=== PATIENT | female | born 1995 | race Caucasian/White ===

== ENCOUNTER → 2017-06-24 | Day surgery (SDC) | payer OTHER ==
[2017-06-10 12:07] VITALS: Ht 172.7 cm; Wt 122.7 kg
[~2017-06-24] VITALS: Ht 172.7 cm; Wt 122.7 kg
[~2017-06-24] MED LIST: ALBU18002 INH; ASPI-390 PO; BUSP15TA70 PO; FLUT0.15; LIDOCAINE HCL 2% 2 ML VIAL (20MG/ML) ONE; MIDAZOLAM HCL 1 MG/ML 2ML VIAL ONE; ONDANSETRON INJ 2 MG/ML 2 ML VIAL ONE; PANT40TA PO; PROPOFOL IV EMULSION 10 MG/ML 20 ML VIAL IV ONE; SERT100T PO; SUCCINYLCHOLINE 100MG/5ML SYR IV ONE
[2017-06-24 12:51] VITALS: TEMP 37.3
--- NOTE | 2017-06-24 12:53 | Endo History and Physical ---
History & Physical Date of Service: Jun 24, 2017. Chief Complaint: Dysphagia, EOE Referring Physician: Roxie Edouard History of Present Illness 22 yo CF who presents for EGD secondary to dysphagia and Eosinophilic esophagitis. Past Surgical History Hx Cardiac Surgery: No Hx Internal Defibrillator: No Hx Pacemaker: No Hx Abdominal Surgery: No Hx of Implantable Prosthesis: No Hx Post-Op Nausea and Vomiting: No Hx Cancer Surgery: No Hx Thoracic Surgery: No Hx Orthopedic: Yes (RT KNEE SURGERY, LT WRIST TENDON REPAIR) Hx Urinary Tract Surgery: No Family History IBD Social History Smoking Status: Never Smoker Hx Substance Use: No Hx Alcohol Use: No Allergies Coded Allergies: BEE STING (Verified Allergy, Unknown, LOCAL SWELLING AT INJECTION SITE, ) Honey (Verified Allergy, Unknown, FACIAL SWELLING, 06/24/17) Penicillins (Verified Allergy, Unknown, RASH, 06/24/17) Current Medications Reported Home Medications Medications Dose Route/Sig Max Daily Dose Days Date Category Flonase Allergy Relief (Fluticasone Propionate (Nasal)) 50 Mcg/Act Spr 06/24/17 Reported Excedrin Migraine (Mfpxczm-Ynequwfpcwxwo-Drzvtycg) 1 Tab Tab 1 Tab PO Q4-6H PRN 06/10/17 Reported Protonix (Pantoprazole Sodium) 40 Mg Tab 40 Mg PO BID 06/10/17 Reported Buspar (Buspirone Hcl) 15 Mg Tab 0.33 Tab PO TID 06/10/17 Reported Zoloft (Sertraline Hcl) 100 Mg Tab 100 Mg PO QAM 06/10/17 Reported Proair Respiclick (Albuterol Sulfate) 108 Mcg/Act Aer 2 Puffs INH Q4H PRN 02/20/16 Reported Vital Signs Weight (Kilograms): 122.73 Height (Feet): 5 Height (Inches): 8 Physical Exam General Appearance: WD/WN, no apparent distress Respiratory/Chest: Auscultation: breath sounds normal Cardiovascular: Heart Auscultation: RRR Abdomen: Bowel Sounds: normal Inspection & Palpation: soft, non-distended, no tenderness, guarding & rebound Assessment and Plan Assessment: 22 yo CF who presents for EGD secondary to dysphagia and Eosinophilic esophagitis. Plan: Proceed with EGD.
--- NOTE | 2017-06-24 13:37 | Discharge Instructions ---
Endoscopy Patient Instructions Date / Procedure(s) Performed Jun 24, 2017. EGD Allergy Information Coded Allergies: BEE STING (Verified Allergy, Unknown, LOCAL SWELLING AT INJECTION SITE, ) Honey (Verified Allergy, Unknown, FACIAL SWELLING, 06/24/17) Penicillins (Verified Allergy, Unknown, RASH, 06/24/17) Discharge Date / Findings Jun 24, 2017. Eosinophilic esophagitis Medication Instructions OK to resume all medications today as prescribed Reported Home Medications Medications Dose Route/Sig Max Daily Dose Days Date Category Flonase Allergy Relief (Fluticasone Propionate (Nasal)) 50 Mcg/Act Spr 06/24/17 Reported Excedrin Migraine (Wrczkdm-Pzsixqdkhsirk-Pvetudby) 1 Tab Tab 1 Tab PO Q4-6H PRN 06/10/17 Reported Protonix (Pantoprazole Sodium) 40 Mg Tab 40 Mg PO BID 06/10/17 Reported Buspar (Buspirone Hcl) 15 Mg Tab 0.33 Tab PO TID 06/10/17 Reported Zoloft (Sertraline Hcl) 100 Mg Tab 100 Mg PO QAM 06/10/17 Reported Proair Respiclick (Albuterol Sulfate) 108 Mcg/Act Aer 2 Puffs INH Q4H PRN 02/20/16 Reported Provider Instructions Activity Restrictions - No exercising or heavy lifting for 24 hours. - Do not drink alcohol the day of the procedure. - Do not drive a car or operate machinery until the day after the procedure. - Do not make any important decisions or sign important papers in 24 hours after the procedure. Following Day: - Return to full activity which may include returning to work/school. Diet Start your diet with liquids and light foods (jello, soup, juice, toast). Then eat your usual diet if not nauseated. Treatment For Common After Affects For mild abdominal pain, bloating, or excessive gas: - Rest - Eat lightly - Lie on right side Follow-Up Information Follow-up with Roxie Edouard as scheduled Anesthesia Information What You Should Know You have had a procedure that required some medicine to reduce anxiety and discomfort. This treatment is called moderate sedation. After receiving the treatment, you may be sleepy, but you will be able to breathe on your own. The effects of the treatment may last for several hours. Follow these instructions along with Activity/Diet recommendations noted above: * Do NOT do anything where dizziness or clumsiness would be dangerous. * Rest quietly at home today, then you can be up and about tomorrow. * Have a responsible person stay with you the rest of today. * You may have had an I.V. today. If so, you may take the dressing off later today. Recommendations Call your doctor if: * Trouble breathing * Continuous vomiting for more than 24 hours * Temperature above 101 degrees * Severe abdominal pain or bloating * Pain not relieved by pain medicine ordered * There is increased drainage or redness from any incision * A large amount of rectal bleeding greater than 2-3 tablespoons. (If you had a polyp/s removed or have hemorrhoids, a small amount of blood - from the rectum is to be expected.) * You have any unanswered questions or concerns. IN THE EVENT OF A SERIOUS EMERGENCY, GO TO THE NEAREST EMERGENCY ROOM Your discharge instructions were prepared by provider Bogdan Cornelius. Patient Instructions Signature Page Mansi Bauman Patient (or Guardian) Signature/Date: I have read and understand the instructions given to me by my caregivers. Caregiver/RN/Doctor Signature/Date: The above-named patient and/or guardian has received patient instructions on this date. + Original Patient Signature Page (only) stays with chart. Please make copy for patient.
--- NOTE | 2017-06-24 13:51 | GI REPORT ---
Procedure Date: 06/24/2017 1:24 PM Procedure: Upper GI endoscopy Indications: Follow-up of eosinophilic esophagitis Medicines: Monitored Anesthesia Care Complications: Laryngospasm Estimated Blood Loss: Estimated blood loss: none. Procedure: Pre-Anesthesia Assessment: - Prior to the procedure, a History and Physical was performed, and patient medications and allergies were reviewed. The patient's tolerance of previous anesthesia was also reviewed. The risks and benefits of the procedure and the sedation options and risks were discussed with the patient. All questions were answered, and informed consent was obtained. Prior Anticoagulants: The patient has taken no previous anticoagulant or antiplatelet agents. ASA Grade Assessment: II - A patient with mild systemic disease. After reviewing the risks and benefits, the patient was deemed in satisfactory condition to undergo the procedure. After obtaining informed consent, the endoscope was passed under direct vision. Throughout the procedure, the patient's blood pressure, pulse, and oxygen saturations were monitored continuously. The scope was introduced through the mouth, and advanced to the second part of duodenum. The upper GI endoscopy was accomplished without difficulty. The patient tolerated the procedure well. Findings: Mucosal changes including ringed esophagus and longitudinal furrows were found in the entire esophagus. The stomach was normal. The examined duodenum was normal. Impression: - Esophageal mucosal changes consistent with eosinophilic esophagitis. - Normal stomach. - Normal examined duodenum. - No specimens collected. Recommendation: - Resume previous diet. - Continue present medications. - Return to primary care physician as previously scheduled. Bogdan Cornelius DO 06/24/2017 1:51:11 PM This report has been signed electronically. Note Initiated On: 06/24/2017 1:24 PM I attest to the content of the Intraoperative Record and orders documented therein, exceptions below
[2017-06-24 13:57] VITALS: PULSE 107; O2SAT 100
[2017-06-24 14:59] VITALS: BP 113/77; PULSE 96; O2SAT 96
--- NOTE | 2017-06-24 15:29 | Anesthesiology Progress Note ---
Anesthesia Post Op Note Date & Time Jun 24, 2017 at 15:11 Vital Signs Pain Intensity: 0 Vital Signs Past 12 Hours Date Time Temp Pulse Resp B/P (MAP) Pulse Ox O2 Delivery O2 Flow Rate FiO2 06/24/17 14:59 96 18 113/77 (89) 96 Room Air 06/24/17 14:44 93 16 129/94 (106) 97 Room Air 06/24/17 14:29 98 18 117/77 (90) 99 Room Air 06/24/17 14:19 100 18 136/90 (105) 95 Room Air 06/24/17 14:12 98 18 180/117 (138) 95 Room Air 06/24/17 14:02 100 16 158/104 (122) 100 Room Air 06/24/17 13:57 107 30 100 Mask 15.0 06/24/17 12:51 37.3 88 18 130/87 (101) 95 Room Air Notes Mental Status: alert / awake / arousable, participated in evaluation Pt Amnestic to Procedure: Yes Nausea / Vomiting: adequately controlled Pain: adequately controlled Airway Patency, RR, SpO2: stable & adequate BP & HR: stable & adequate Hydration State: stable & adequate Anesthetic Complications: no major complications apparent The patient is a 22 y/o female with a h/o Asthma, GERD, Anxiety and morbid obesity s/p EGD with Dr. Cornelius. Preoperatively the patient stated that her Asthma has been under good control. She was saturating 96% up to 99% with deep breathing on room air and lungs were clear to auscultation bilaterally. The patient was given 100mg IV propofol for sedation. Towards the end of the procedure, I was called into the procedure room by Dr. Cornelius. On arrival to the procedure room, the EMPLOYEE BENEFITS ATTORNEY Jamison was masking the patient with the Ambu bag. She stated that the patient appeared to be having laryngospasm. I immediately gave 20mg IV Succinylcholine which broke the spasm and applied a jaw thrust. Per the EMPLOYEE BENEFITS ATTORNEY, the patient's oxygen saturation had briefly dropped to the low 80s , but was now 99-100% on 10 L FM. The patient began to wake up more and was oxygenating and ventilating well. Her lungs were clear to auscultation, however she had a dry cough so an Albuterol nebulizer was given. In recovery, the patient was saturating 99-100 % on room air. She denied any shortness of breath and her lungs were clear to auscultation bilaterally. She had no further coughing. I informed the patient and her parents that she appeared to have had an episode of laryngospasm at the end of the procedure. She felt well on discharge with no complaints. Her oxygen saturation was 99-100 % on RA on discharge. I instructed her to go to the ED with any chest pain, shortness of breath, wheezing, worsening cough, lightheaded or dizziness or with any other complaints. She understands and agrees.
== END | disposition home or self-care (01) ==
LOC: C.GI 12:24
PROVIDERS: ATTEND Internal Medicine
DX: Z09 Encounter for follow-up examination after completed treatment for conditions other than malignant neoplasm (principal); K20.0 Eosinophilic esophagitis; R13.10 Dysphagia, unspecified; J45.909 Unspecified asthma, uncomplicated; Z98.890 Other specified postprocedural states; Z91.030 Bee allergy status; Z88.0 Allergy status to penicillin; Z79.899 Other long term (current) drug therapy; E66.01 Morbid (severe) obesity due to excess calories; Z68.41 Body mass index [BMI] 40.0-44.9, adult

== ENCOUNTER → 2017-08-19 | Day surgery (SDC) | payer OTHER ==
[2017-07-24 15:42] VITALS: Ht 172.7 cm; Wt 122.7 kg
[~2017-08-19] VITALS: Ht 172.7 cm; Wt 122.7 kg
[~2017-08-19] MED LIST changes: -FLUT0.15; +FLUT0.15 NAE; +KETAMINE HCL INJ 50 MG/ML 10 ML VIAL ONE; -ONDANSETRON INJ 2 MG/ML 2 ML VIAL ONE; -SUCCINYLCHOLINE 100MG/5ML SYR IV ONE
--- NOTE | 2017-08-19 12:05 | Endo History and Physical ---
History & Physical Date of Service: Aug 19, 2017. Chief Complaint: dysphagia,esophagitis with dilation Referring Physician: Roxie Hudson History of Present Illness 22 yo CF who presents for EGD secondary to dysphagia and esophagitis. Past Surgical History Hx Cardiac Surgery: No Hx Internal Defibrillator: No Hx Pacemaker: No Hx Abdominal Surgery: No Hx of Implantable Prosthesis: No Hx Post-Op Nausea and Vomiting: No Hx Cancer Surgery: No Hx Thoracic Surgery: No Hx Orthopedic: Yes (RT KNEE SURGERY, LT WRIST TENDON REPAIR) Hx Urinary Tract Surgery: No Family History IBD Social History Smoking Status: Never Smoker Hx Substance Use: No Hx Alcohol Use: No Allergies Coded Allergies: BEE STING (Verified Allergy, Unknown, LOCAL SWELLING AT INJECTION SITE, ) Honey (Verified Allergy, Unknown, FACIAL SWELLING, 07/24/17) Penicillins (Verified Allergy, Unknown, RASH, 07/24/17) Current Medications Reported Home Medications Medications Dose Route/Sig Max Daily Dose Days Date Category Flonase Allergy Relief (Fluticasone Propionate (Nasal)) 50 Mcg/Act Spr 1 Dose GLADIS DAILY PRN 06/24/17 Reported Excedrin Migraine (Miilwvk-Brarfxdgttdjn-Azuytrhb) 1 Tab Tab 1 Tab PO Q4-6H PRN 06/10/17 Reported Protonix (Pantoprazole Sodium) 40 Mg Tab 40 Mg PO BID 06/10/17 Reported Buspar (Buspirone Hcl) 15 Mg Tab 0.33 Tab PO TID 06/10/17 Reported Zoloft (Sertraline Hcl) 100 Mg Tab 100 Mg PO QAM 06/10/17 Reported Proair Respiclick (Albuterol Sulfate) 108 Mcg/Act Aer 2 Puffs INH Q4H PRN 02/20/16 Reported Vital Signs Weight (Kilograms): 122.73 Height (Feet): 5 Height (Inches): 8 Date Time Temp Pulse Resp B/P (MAP) Pulse Ox O2 Delivery O2 Flow Rate FiO2 08/19/17 11:29 36.8 78 20 133/84 (100) 95 Room Air Physical Exam General Appearance: WD/WN, no apparent distress Respiratory/Chest: Auscultation: breath sounds normal Cardiovascular: Heart Auscultation: RRR Abdomen: Bowel Sounds: normal Inspection & Palpation: soft, non-distended, no tenderness, guarding & rebound Assessment and Plan Assessment: 22 yo CF who presents for EGD secondary to dysphagia and esophagitis. Plan: Proceed with EGD.
--- NOTE | 2017-08-19 12:45 | Discharge Instructions ---
Endoscopy Patient Instructions Date / Procedure(s) Performed Aug 19, 2017. EGD Allergy Information Coded Allergies: BEE STING (Verified Allergy, Unknown, LOCAL SWELLING AT INJECTION SITE, ) Honey (Verified Allergy, Unknown, FACIAL SWELLING, 07/24/17) Penicillins (Verified Allergy, Unknown, RASH, 07/24/17) Discharge Date / Findings Aug 19, 2017. Mid-esophageal biopsies Esophageal dilation Medication Instructions OK to resume all medications today as prescribed Reported Home Medications Medications Dose Route/Sig Max Daily Dose Days Date Category Flonase Allergy Relief (Fluticasone Propionate (Nasal)) 50 Mcg/Act Spr 1 Dose GLADIS DAILY PRN 06/24/17 Reported Excedrin Migraine (Vsoukjb-Arhwikhzlsqil-Bfspvuuq) 1 Tab Tab 1 Tab PO Q4-6H PRN 06/10/17 Reported Protonix (Pantoprazole Sodium) 40 Mg Tab 40 Mg PO BID 06/10/17 Reported Buspar (Buspirone Hcl) 15 Mg Tab 0.33 Tab PO TID 06/10/17 Reported Zoloft (Sertraline Hcl) 100 Mg Tab 100 Mg PO QAM 06/10/17 Reported Proair Respiclick (Albuterol Sulfate) 108 Mcg/Act Aer 2 Puffs INH Q4H PRN 02/20/16 Reported Provider Instructions Activity Restrictions - No exercising or heavy lifting for 24 hours. - Do not drink alcohol the day of the procedure. - Do not drive a car or operate machinery until the day after the procedure. - Do not make any important decisions or sign important papers in 24 hours after the procedure. Following Day: - Return to full activity which may include returning to work/school. Diet Start your diet with liquids and light foods (jello, soup, juice, toast). Then eat your usual diet if not nauseated. Treatment For Common After Affects For mild abdominal pain, bloating, or excessive gas: - Rest - Eat lightly - Lie on right side Follow-Up Information Follow-up with Roxie Hudson as scheduled Anesthesia Information What You Should Know You have had a procedure that required some medicine to reduce anxiety and discomfort. This treatment is called moderate sedation. After receiving the treatment, you may be sleepy, but you will be able to breathe on your own. The effects of the treatment may last for several hours. Follow these instructions along with Activity/Diet recommendations noted above: * Do NOT do anything where dizziness or clumsiness would be dangerous. * Rest quietly at home today, then you can be up and about tomorrow. * Have a responsible person stay with you the rest of today. * You may have had an I.V. today. If so, you may take the dressing off later today. Recommendations Call your doctor if: * Trouble breathing * Continuous vomiting for more than 24 hours * Temperature above 101 degrees * Severe abdominal pain or bloating * Pain not relieved by pain medicine ordered * There is increased drainage or redness from any incision * A large amount of rectal bleeding greater than 2-3 tablespoons. (If you had a polyp/s removed or have hemorrhoids, a small amount of blood - from the rectum is to be expected.) * You have any unanswered questions or concerns. IN THE EVENT OF A SERIOUS EMERGENCY, GO TO THE NEAREST EMERGENCY ROOM Your discharge instructions were prepared by provider Bogdan Cornelius. Patient Instructions Signature Page Mansi Bauman Patient (or Guardian) Signature/Date: I have read and understand the instructions given to me by my caregivers. Caregiver/RN/Doctor Signature/Date: The above-named patient and/or guardian has received patient instructions on this date. + Original Patient Signature Page (only) stays with chart. Please make copy for patient.
[2017-08-19 13:20] VITALS: BP 163/90; PULSE 80; O2SAT 97
--- NOTE | 2017-08-19 13:22 | GI REPORT ---
Procedure Date: 08/19/2017 12:06 PM Procedure: Upper GI endoscopy Indications: For therapy of eosinophilic esophagitis Medicines: Monitored Anesthesia Care Complications: No immediate complications. Estimated Blood Loss: Estimated blood loss: none. Procedure: Pre-Anesthesia Assessment: - Prior to the procedure, a History and Physical was performed, and patient medications and allergies were reviewed. The patient's tolerance of previous anesthesia was also reviewed. The risks and benefits of the procedure and the sedation options and risks were discussed with the patient. All questions were answered, and informed consent was obtained. Prior Anticoagulants: The patient has taken no previous anticoagulant or antiplatelet agents. ASA Grade Assessment: III - A patient with severe systemic disease. After reviewing the risks and benefits, the patient was deemed in satisfactory condition to undergo the procedure. After obtaining informed consent, the endoscope was passed under direct vision. Throughout the procedure, the patient's blood pressure, pulse, and oxygen saturations were monitored continuously. The Scope was introduced through the mouth, and advanced to the second part of duodenum. The upper GI endoscopy was accomplished without difficulty. The patient tolerated the procedure well. Findings: Mucosal changes including feline appearance were found in the middle third of the esophagus and in the lower third of the esophagus. Biopsies were taken with a cold forceps for histology. A guidewire was placed and the scope was withdrawn. Dilation was performed with a Savary dilator with no resistance at 54 Fr. The dilation site was examined and showed no change. The stomach was normal. The examined duodenum was normal. Impression: - Esophageal mucosal changes consistent with eosinophilic esophagitis. Biopsied. Dilated. - Normal stomach. - Normal examined duodenum. Recommendation: - Resume previous diet. - Continue present medications. - Await pathology results. - Return to primary care physician as previously scheduled. Bogdan CorneliusDO 08/19/2017 1:21:58 PM This report has been signed electronically. Note Initiated On: 08/19/2017 12:06 PM I attest to the content of the Intraoperative Record and orders documented therein, exceptions below
--- NOTE | 2017-08-19 13:32 | Anesthesiology Progress Note ---
Anesthesia Post Op Note Date & Time Aug 19, 2017 at 13:32 Vital Signs Pain Intensity: 0 Vital Signs Past 12 Hours Date Time Temp Pulse Resp B/P (MAP) Pulse Ox O2 Delivery O2 Flow Rate FiO2 08/19/17 13:20 80 20 163/90 (114) 97 Room Air 08/19/17 13:05 90 18 122/60 (80) 97 Room Air 08/19/17 12:49 36.0 84 18 113/69 (84) 95 Room Air 08/19/17 11:29 36.8 78 20 133/84 (100) 95 Room Air Notes Mental Status: alert / awake / arousable, participated in evaluation Pt Amnestic to Procedure: Yes Nausea / Vomiting: adequately controlled Pain: adequately controlled Airway Patency, RR, SpO2: stable & adequate BP & HR: stable & adequate Hydration State: stable & adequate Anesthetic Complications: no major complications apparent
== END | disposition home or self-care (01) ==
LOC: C.GI 10:47
PROVIDERS: ATTEND Internal Medicine
DX: R13.10 Dysphagia, unspecified (principal); K20.9 Esophagitis, unspecified; J45.909 Unspecified asthma, uncomplicated; E66.9 Obesity, unspecified; Z68.41 Body mass index [BMI] 40.0-44.9, adult; Z88.0 Allergy status to penicillin; Z91.030 Bee allergy status; Z91.018 Allergy to other foods; Z98.890 Other specified postprocedural states; Z79.899 Other long term (current) drug therapy; Z90.89 Acquired absence of other organs

== ENCOUNTER 2021-02-14 08:07 | Inpatient (IN) ==
[2021-02-14] MEDS ORDERED: SODIUM CHLORIDE 0.9% 1000ML 500 ML IV ONE (08:40)
[2021-02-14] MEDS ORDERED: ACETAMINOPHEN 1000 MG/100 ML IV IV STA (08:40)
[2021-02-14] MEDS ORDERED: dexAMETHasone**PF** 10 MG/ML VIAL IV ONE (08:40)
[2021-02-14] MEDS ORDERED: MAGNESIUM SULFATE / D5W 1 GM/100 ML BAG IV STA (08:40)
[2021-02-14] MEDS ORDERED: ALBUT/IPRATROP 3MG/0.5MG NEB 3 ML VIAL NEB STA (08:40)
--- NOTE | 2021-02-14 08:49 | Emergency Department Note ---
Impression & Plan Hypoxia, SOB (shortness of breath), Pneumonia, COVID-19 ED Provider Note NAME: REGINA VILLEGAS AGE: 25 SEX: F : 1995 ARRIVES VIA: Ambulance INFORMANT: [Patient][ems] ED PROVIDER(S): [Rock Gomez MD] CHIEF COMPLAINT: Short of breath HISTORY OF PRESENT ILLNESS: The patient is a 25-year-old patient with a history of asthma. She began feeling ill with a stuffy nose and some cold symptoms about 8 days ago. The patient states that in the last 24 hours, she has become quite short of breath. She has been coughing quite a bit. She denies any issues with her taste or smell. She has not had vomiting or diarrhea. She has no body aches. She may have had a low-grade fever at home, no chills. She is not vaccinated against COVID-19. She had a Covid test several days ago but is unsure of the result. Looking at old records, the patient was Covid positive at our hospital on the ninth, 5 days ago. As per EMS, her O2 saturation was 66%, she is now on 15 L of oxygen and feeling better. As per the family with her, her lips were blue earlier. REVIEW OF SYSTEMS: See HPI for pertinent positives and negatives. A total of ten systems were reviewed and were otherwise negative. PMHx/PSHx: See Below SOCIAL HISTORY: See Below. PHYSICAL EXAM: GENERAL: Patient is in no acute distress. HEENT: No acute trauma, normocephalic atraumatic, mucous membranes moist, no nasal congestion, no scleral icterus. NECK: No stridor, no adenopathy, no meningismus, trachea is midline. LUNGS: No current respiratory distress, increased respiratory rate. Speaks in fairly full sentences. No wheeze. HEART: Tachycardic, regular rhythm, no murmurs. ABDOMEN: Soft, nontender, bowel sounds positive, no hernias, no peritonitis. EXTREMITIES: No cyanosis or edema, full range of motion of all the joints without pain or difficulty, no signs for acute trauma. NEUROLOGIC: Oriented x 3, no acute motor or sensory deficits, no focal weakness. SKIN: No rash, no jaundice, no diaphoresis. DIFFERENTIAL DIAGNOSIS: Reactive airway disease, pneumonia, pneumothorax, COVID-19, COPD, CHF, infection, cardiac ischemia, pulmonary embolism, bronchitis, musculoskeletal, gastrointestinal, as well as other pathologies. EMERGENCY DEPARTMENT COURSE/PROCEDURES: ECG: Indication was shortness of breath. The ECG shows a sinus tachycardia with a rate of 132. There is some diffuse nonspecific ST change. There is no ST elevation, no PVCs. The QTc is 450. Continuous Cardiac Monitoring: An order was placed for continuous cardiac monitoring. The monitor shows a rate of 122 with sinus tachycardia. Critical Care Note: I have personally spent 64 minutes of critical care time in the direct management of this patient. This includes bedside care, interpretation of diagnostic studies, and testing, discussion with consultants, patient, and family members, and other required patient management activities. This 64 minutes is in excess of all separately billable procedures. MEDICAL DECISION MAKING: There is no leukocytosis or concerning anemia. There is a normal platelet count. No coagulopathy. Magnesium was somewhat low at 1.4. No kidney failure. No worrisome liver enzyme elevation. Lactic acid level was not elevated making severe sepsis less likely. ECG shows a sinus tachycardia, no acute ischemia. Cardiac enzyme testing x1 is not consistent with acute cardiac injury. Chest film shows a bilateral pneumonia consistent with potential COVID-19. Covid testing returned positive. Chest CT did not show PE, Covid pneumonia was seen. A small amount of pneumomediastinum was noted. No pneumothorax. The patient presented hypoxic. She was requiring a large amount of oxygen to keep her saturation adequate. She was eventually placed on high flow O2. She received IV Decadron, IV saline, a DuoNeb. She was given IV Tylenol. She received IV magnesium. The patient is hypoxic, tachycardic, febrile. She has Covid pneumonia. She requires a hospital stay and further care. I spoke to the patient, I spoke with case management. The on-call hospitalist was consulted. Past Med/Surg History Medical History Anxiety Asthma Eosinophilic esophagitis No pertinent family history No pertinent past medical history Obesity (BMI 30-39.9) Surgical History No pertinent past surgical history Family History (Updated 02/14/21 @ 12:12 by Dom Ocampo DO) Grandmother Rheumatoid arthritis Social History Smoking Status: Never smoker Hx Alcohol Use: No Hx Substance Use: No Preferred Language: Palestinian Communication Ability: Effective Enrichment Assistant Required: No Beliefs That Will Affect Care: None Current Living Situation: Family Feels Safe at Home: Yes Allergies Allergies Allergy/AdvReac Type Severity Reaction Status Date / Time bee venom protein (honey bee) Allergy Unknown LOCAL Verified 02/14/21 09:41 SWELLING AT INJECTION SITE honey Allergy Unknown FACIAL Verified 02/14/21 09:41 SWELLING Penicillins Allergy Unknown RASH Verified 02/14/21 09:41 Home Meds Home Medications Medication Instructions Recorded Confirmed albuterol sulfate 90 mcg/actuation 1 puff INHALATION Q4H PRN 02/14/21 02/14/21 aerosol inhaler (Ventolin HFA) atomoxetine 40 mg capsule 40 mg PO BID 02/14/21 02/14/21 buspirone 15 mg tablet 15 mg PO DAILY 02/14/21 02/14/21 fluticasone furoate 100 1 inh INHALATION DAILY 02/14/21 02/14/21 mcg-vilanterol 25 mcg/dose inhalation powder (Breo Ellipta) pantoprazole 40 mg tablet,delayed 40 mg PO BID 02/14/21 02/14/21 release sertraline 100 mg tablet 100 mg PO DAILY 02/14/21 02/14/21 sertraline 50 mg tablet 50 mg PO DAILY 02/14/21 02/14/21 Results & Data (ED) Vital Signs Vital Signs - 24 hr 02/14/21 08:18 02/14/21 08:30 02/14/21 08:45 Temperature 39.2 C H Temperature Source Oral Pulse Rate 135 H 136 H 134 H Pulse Rate [Finger] Pulse Rhythm Regular Pulse Rhythm [Finger] Pulse Strength Normal Respiratory Rate 32 H 38 H 22 Respiratory Effort / Characteristics Non-Labored Respiratory Depth Normal Respiratory Pattern Regular Blood Pressure 122/70 Blood Pressure [Left Arm] Blood Pressure Mean 87 Blood Pressure Mean [Left Arm] Blood Pressure Position [Left Arm] Pulse Oximetry 83 L 94 94 Oxygen Delivery Method Oxymask Oxymask Oxymask Oxygen Flow Rate 15 15 15 Fraction of Inspired Oxygen Sepsis Recent Fever Within 48 Hours Yes Sepsis New/Unexplained Change in Mental Status No Sepsis Action Taken by Nursing Physician Notified 02/14/21 08:54 02/14/21 09:00 02/14/21 09:17 Temperature Temperature Source Pulse Rate 123 H Pulse Rate [Finger] Pulse Rhythm Pulse Rhythm [Finger] Pulse Strength Respiratory Rate 27 H Respiratory Effort / Characteristics Short of Breath Respiratory Depth Normal Respiratory Pattern Regular Blood Pressure 114/75 Blood Pressure [Left Arm] Blood Pressure Mean 88 Blood Pressure Mean [Left Arm] Blood Pressure Position [Left Arm] Pulse Oximetry 96 94 Oxygen Delivery Method Oxymask Oxymask Oxymask Oxygen Flow Rate 15 15 15 Fraction of Inspired Oxygen Sepsis Recent Fever Within 48 Hours Sepsis New/Unexplained Change in Mental Status Sepsis Action Taken by Nursing 02/14/21 09:30 02/14/21 09:42 02/14/21 09:45 Temperature Temperature Source Pulse Rate 119 H Pulse Rate [Finger] 121 H 122 H 119 H Pulse Rhythm Pulse Rhythm [Finger] Regular Pulse Strength Respiratory Rate 17 20 20 Respiratory Effort / Characteristics Non-Labored Spontaneous Non-Labored Non-Labored Spontaneous Respiratory Depth Normal Respiratory Pattern Blood Pressure 107/74 Blood Pressure [Left Arm] 107/59 L Blood Pressure Mean 85 Blood Pressure Mean [Left Arm] 75 Blood Pressure Position [Left Arm] Sitting Pulse Oximetry 86 L 95 94 Oxygen Delivery Method Oxymask Oxymask High Flow Nasal Cannula Oxygen Flow Rate 15 15 35 Fraction of Inspired Oxygen 100 Sepsis Recent Fever Within 48 Hours Sepsis New/Unexplained Change in Mental Status Sepsis Action Taken by Nursing 02/14/21 10:00 Temperature Temperature Source Pulse Rate 115 H Pulse Rate [Finger] Pulse Rhythm Pulse Rhythm [Finger] Pulse Strength Respiratory Rate 30 H Respiratory Effort / Characteristics Respiratory Depth Respiratory Pattern Blood Pressure 103/66 Blood Pressure [Left Arm] Blood Pressure Mean 78 Blood Pressure Mean [Left Arm] Blood Pressure Position [Left Arm] Pulse Oximetry 91 Oxygen Delivery Method High Flow Nasal Cannula Oxygen Flow Rate 35 Fraction of Inspired Oxygen 100 Sepsis Recent Fever Within 48 Hours Sepsis New/Unexplained Change in Mental Status Sepsis Action Taken by [facility] Medications Current Medication List: was personally reviewed by me Laboratory Data Attestation: I reviewed the patient's lab results. Result diagrams: 02/14/21 08:35 02/14/21 08:35 Lab Results 02/14/21 02/14/21 02/14/21 Range/Units 08:35 08:35 08:35 WBC 4.87 (4.8-10.8) K/uL RBC 4.11 L (4.2-5.4) M/uL Hgb 10.8 L (12.0-16.0) g/dL Hct 33.9 L (37-47) % MCV 82.5 (80-100) fL MCH 26.3 (25-34) pg MCHC 31.9 L (32-36) g/dL RDW Std Deviation 44.4 (36.4-46.3) fL RDW Coeff of Akua 14.7 H (11.5-14.5) % Plt Count 159 (130-400) K/uL MPV 10.2 (7.4-10.4) fL Immature Gran % (Auto) 0.6 % Neut % (Auto) 82.8 % Lymph % (Auto) 15.0 % Colbert % (Auto) 1.6 % Eos % (Auto) 0.0 % Baso % (Auto) 0.0 % Neut # (Auto) 4.03 (1.4-6.5) K/uL Lymph # (Auto) 0.73 L (1.2-3.4) K/uL Colbert # (Auto) 0.08 L (0.11-0.59) K/uL Eos # (Auto) 0.00 (0-0.5) K/uL Baso # (Auto) 0.00 (0-0.2) K/uL Immature Gran # (Auto) 0.03 H (0.00-0.02) K/uL PT 9.8 (9.0-12.0) Seconds INR 1.0 (0.9-1.1) APTT 24.2 (21.0-31.0) Seconds PTT Ratio 0.9 Sodium 139 (136-145) mmol/L Potassium 3.6 (3.5-5.1) mmol/L Chloride 108 H (98-107) mmol/L Carbon Dioxide 24 (21-32) mmol/L Anion Gap 7.0 (3-11) BUN 8 (7-18) mg/dl Creatinine 0.76 (0.6-1.2) mg/dl Est Cr Clr Drug Dosing 153.5 ml/min Est GFR ( Amer) 124.6 ml/min Est GFR (Non-Af Amer) 107.5 ml/min BUN/Creatinine Ratio 10.5 (10-20) Glucose 129 H (70-99) mg/dl Lactate (0.4-2.0) mmol/L Calcium 8.8 (8.5-10.1) mg/dl Magnesium 1.4 L (1.8-2.4) mg/dl Total Bilirubin 0.2 (0.2-1) mg/dl AST 65 H (15-37) U/L ALT 25 (12-78) U/L Alkaline Phosphatase 67 (45-117) U/L Troponin I < 0.015 (0-0.045) ng/ml C-Reactive Protein (0-0.29) mg/dl Total Protein 6.5 (6.4-8.2) gm/dl Albumin 2.3 L (3.4-5.0) gm/dl Globulin 4.2 H (2.5-4.0) gm/dl Albumin/Globulin Ratio 0.5 L (0.9-2) Procalcitonin (0-0.5) ng/ml COVID-19 Eval Order SARS-CoV-2 (PCR) (Negative) 02/14/21 02/14/21 02/14/21 Range/Units 08:35 08:35 08:35 WBC (4.8-10.8) K/uL RBC (4.2-5.4) M/uL Hgb (12.0-16.0) g/dL Hct (37-47) % MCV (80-100) fL MCH (25-34) pg MCHC (32-36) g/dL RDW Std Deviation (36.4-46.3) fL RDW Coeff of Akua (11.5-14.5) % Plt Count (130-400) K/uL MPV (7.4-10.4) fL Immature Gran % (Auto) % Neut % (Auto) % Lymph % (Auto) % Colbert % (Auto) % Eos % (Auto) % Baso % (Auto) % Neut # (Auto) (1.4-6.5) K/uL Lymph # (Auto) (1.2-3.4) K/uL Colbert # (Auto) (0.11-0.59) K/uL Eos # (Auto) (0-0.5) K/uL Baso # (Auto) (0-0.2) K/uL Immature Gran # (Auto) (0.00-0.02) K/uL PT (9.0-12.0) Seconds INR (0.9-1.1) APTT (21.0-31.0) Seconds PTT Ratio Sodium (136-145) mmol/L Potassium (3.5-5.1) mmol/L Chloride (98-107) mmol/L Carbon Dioxide (21-32) mmol/L Anion Gap (3-11) BUN (7-18) mg/dl Creatinine (0.6-1.2) mg/dl Est Cr Clr Drug Dosing ml/min Est GFR ( Amer) ml/min Est GFR (Non-Af Amer) ml/min BUN/Creatinine Ratio (10-20) Glucose (70-99) mg/dl Lactate 1.6 (0.4-2.0) mmol/L Calcium (8.5-10.1) mg/dl Magnesium (1.8-2.4) mg/dl Total Bilirubin (0.2-1) mg/dl AST (15-37) U/L ALT (12-78) U/L Alkaline Phosphatase (45-117) U/L Troponin I (0-0.045) ng/ml C-Reactive Protein (0-0.29) mg/dl Total Protein (6.4-8.2) gm/dl Albumin (3.4-5.0) gm/dl Globulin (2.5-4.0) gm/dl Albumin/Globulin Ratio (0.9-2) Procalcitonin (0-0.5) ng/ml COVID-19 Eval Order Covid19 at [facility] SARS-CoV-2 (PCR) POSITIVE A* (Negative) 02/14/21 02/14/21 Range/Units 08:35 09:28 WBC (4.8-10.8) K/uL RBC (4.2-5.4) M/uL Hgb (12.0-16.0) g/dL Hct (37-47) % MCV (80-100) fL MCH (25-34) pg MCHC (32-36) g/dL RDW Std Deviation (36.4-46.3) fL RDW Coeff of Akua (11.5-14.5) % Plt Count (130-400) K/uL MPV (7.4-10.4) fL Immature Gran % (Auto) % Neut % (Auto) % Lymph % (Auto) % Colbert % (Auto) % Eos % (Auto) % Baso % (Auto) % Neut # (Auto) (1.4-6.5) K/uL Lymph # (Auto) (1.2-3.4) K/uL Colbert # (Auto) (0.11-0.59) K/uL Eos # (Auto) (0-0.5) K/uL Baso # (Auto) (0-0.2) K/uL Immature Gran # (Auto) (0.00-0.02) K/uL PT (9.0-12.0) Seconds INR (0.9-1.1) APTT (21.0-31.0) Seconds PTT Ratio Sodium (136-145) mmol/L Potassium (3.5-5.1) mmol/L Chloride (98-107) mmol/L Carbon Dioxide (21-32) mmol/L Anion Gap (3-11) BUN (7-18) mg/dl Creatinine (0.6-1.2) mg/dl Est Cr Clr Drug Dosing ml/min Est GFR ( Amer) ml/min Est GFR (Non-Af Amer) ml/min BUN/Creatinine Ratio (10-20) Glucose (70-99) mg/dl Lactate (0.4-2.0) mmol/L Calcium (8.5-10.1) mg/dl Magnesium (1.8-2.4) mg/dl Total Bilirubin (0.2-1) mg/dl AST (15-37) U/L ALT (12-78) U/L Alkaline Phosphatase (45-117) U/L Troponin I (0-0.045) ng/ml C-Reactive Protein 12.30 H (0-0.29) mg/dl Total Protein (6.4-8.2) gm/dl Albumin (3.4-5.0) gm/dl Globulin (2.5-4.0) gm/dl Albumin/Globulin Ratio (0.9-2) Procalcitonin 0.17 (0-0.5) ng/ml COVID-19 Eval Order SARS-CoV-2 (PCR) (Negative) Administered Medications Baricitinib (4 Mg Once Daily X14 Days) 4 mg PO DAILY ERNESTINE; Protocol Stop: 02/28/21 08:59 Last Admin: 02/14/21 13:42 Dose: 4 mg Documented by: [id number] Enoxaparin Sodium (Enoxaparin Inj 60 Mg/0.6 Ml Syr) 60 mg SQ Q12 ERNESTINE Stop: 03/16/21 13:59 Last Admin: 02/14/21 14:59 Dose: 60 mg Documented by: [id number] Fluticasone/Vilanterol (Fluticasone/Vilanterol 100/25mcg 14 Puffs/Inhaler) 1 pu ffs INH DAILY ERNESTINE Stop: 03/16/21 11:14 Last Admin: 02/14/21 13:41 Dose: 1 puffs Documented by: [id number] Discontinued Medications Acetaminophen (Acetaminophen 1000 Mg/100 Ml Iv) 1,000 mg IV NOW STA Stop: 02/14/21 08:41 Last Admin: 02/14/21 09:34 Dose: 1,000 mg Documented by: [id number] Albuterol (Albut/Ipratrop 3mg/0.5mg Neb 3 Ml Vial) 3 ml NEB NOW STA Stop: 02/14/21 08:41 Last Admin: 02/14/21 09:28 Dose: 3 ml Documented by: [id number] Dexamethasone Sodium Phosphate (DexamethasonePf 10 Mg/Ml Vial) 6 mg IV NOW ONE Stop: 02/14/21 08:41 Last Admin: 02/14/21 09:34 Dose: 6 mg Documented by: [id number] Furosemide (Furosemide 40 Mg/4 Ml Vial) 20 mg IV ONE ONE Stop: 02/14/21 13:01 Last Admin: 02/14/21 14:59 Dose: 20 mg Documented by: [id number] Magnesium Sulfate/Dextrose (Magnesium Sulfate / D5w) 1 gm in 100 mls @ 100 ml s/hr IV NOW STA Stop: 02/14/21 09:39 Last Infusion: 02/14/21 11:04 Dose: 0 mls/hr Documented by: [id number] Admin: 02/14/21 09:34 Dose: 100 mls/hr Documented by: [id number] Sodium Chloride (Nss 1000ml) 500 mls @ 999 mls/hr IV .Q31M ONE Stop: 02/14/21 09:10 Last Infusion: 10/14/21 10:55 Dose: 0 mls/hr Documented by: [id number] Admin: 02/14/21 09:34 Dose: 999 mls/hr Documented by: [id number] Remdesivir 200 mg/ Sodium (Chloride) 250 mls @ 125 mls/hr IV ONE STA; Protocol Stop: 02/14/21 12:17 Last Infusion: 02/14/21 14:09 Dose: 0 mls/hr Documented by: [id number] Admin: 02/14/21 11:02 Dose: 125 mls/hr Documented by: [id number] Ioversol (Optiray 320 125ml) 120 ml IV ONCE ONE Stop: 02/14/21 11:28 Last Admin: 02/14/21 11:27 Dose: 120 ml Documented by: [id number] Imaging Data Radiologist's Impression: Chest X-Ray 02/14/21 08:31 XR chest 1V portable HISTORY: 25 years-old Female SOB acute shortness of breath. COVID Positive. COMPARISON: None TECHNIQUE: Portable AP view of the chest FINDINGS: Cardiac silhouette is upper limits of normal in size. Extensive multifocal patchy bilateral airspace opacities are most pronounced in the left lung base and right upper lung. There is associated coarsening of the interstitium. No pneumothorax or large pleural effusion. No acute fracture. IMPRESSION: Extensive bilateral airspace opacities compatible with viral pneumonia. ACT 112: Negative or not required by law. The above report was generated using voice recognition software. It may contain grammatical, syntax or spelling errors. Electronically signed by: Juan Arrington M.D. 02/14/2021 9:07 AM Chest CTA 02/14/21 09:00 CT angio chest PE protocol CT DOSE: 531.44 mGycm HISTORY: 25 years-old Female with PE. Acute cough with shortness of breath TECHNIQUE: Multiple CTA images of the chest were obtained after the intravenous administration of 120 ml Optiray. Coronal and sagittal MIPS were obtained from the axial data set and were submitted for review. All measurements were obtained according to NASCET criteria. A dose lowering technique was utilized adhering to the principles of ALARA. COMPARISON: Chest radiograph of same day FINDINGS: CTA: The heart is upper limits of normal in size. No pericardial effusion. Normal thoracic aorta. Respiratory motion artifact and contrast bolus timing limits evaluation of the pulmonary artery. No pulmonary emboli identified. CT CHEST: Unremarkable thyroid. Pathologically enlarged mediastinal and hilar lymph nodes measure up to approximately 12 mm. Trace pleural effusions. No pneumothorax. Small amount of pneumomediastinum is noted within the subcarinal distribution tracking along the distal esophagus. Extensive bilateral intermixed groundglass and airspace opacities. There is mild associated intralobular septal thickening. Central airways are patent. Hepatosplenomegaly with hepatic steatosis. Mild nonspecific distal esophageal wall thickening. Unremarkable soft tissues. No acute fracture. IMPRESSION: 1. No pulmonary emboli identified. 2. Extensive bilateral intermixed groundglass and airspace opacities compatible with multifocal pneumonia. 3. Pathologically enlarged mediastinal and hilar lymph nodes are likely reactive. 4. Small amount of pneumomediastinum. No pneumothorax. 5. Trace pleural effusions. ACT 112: Negative or not required by law. The above report was generated using voice recognition software. It may contain grammatical, syntax or spelling errors. Electronically signed by: Juan Arrington M.D. 02/14/2021 11:42 AM Discharge Plan Visit Data Chief Complaint: Shortness of Breath/Dyspnea Stated Complaint: SOB ED Provider: Rock Gomez Discharge Problem: Hypoxia, SOB (shortness of breath), Pneumonia, COVID-19 Patient Disposition: Admitted As Inpatient Condition: Serious Discharge Instructions Interventions: ED Discharge Assessment Last Done: 02/14/21 11:16
[2021-02-14 08:53] LABS: Hematocrit (blood only) 33.9 % (37-47); Hemoglobin 10.8 g/dL (12.0-16.0); Mean Corpuscular Hemoglobin 26.3 pg (25-34); Mean Corpuscular Hgb Conc 31.9 g/dL (32-36); Mean Corpuscular Volume 82.5 fL (80-100); Mean Platelet Volume 10.2 fL (7.4-10.4); Platelet Count 159 K/uL (130-400); RDW Coefficient of Variation 14.7 % (11.5-14.5); RDW Standard Deviation 44.4 fL (36.4-46.3); Red Blood Count 4.11 M/uL (4.2-5.4); White Blood Count 4.87 K/uL (4.8-10.8)
[2021-02-14 09:03] LABS: Partial Thromboplastin Ratio 0.9; Partial Thromboplastin Time 24.2 Seconds (21.0-31.0); Prothrombin Time 9.8 Seconds (9.0-12.0)
--- NOTE | 2021-02-14 09:08 | XRay Report ---
XR chest 1V portable HISTORY: 25 years-old Female SOB acute shortness of breath. COVID Positive. COMPARISON: None TECHNIQUE: Portable AP view of the chest FINDINGS: Cardiac silhouette is upper limits of normal in size. Extensive multifocal patchy bilateral airspace opacities are most pronounced in the left lung base and right upper lung. There is associated coarsen ing of the interstitium. No pneumothorax or large pleural effusion. No acute fracture. IMPRESSION: Extensive bilateral airspace opacities compatible with viral pneumonia. ACT 112: Negative or not required by law. The above report was generated using voice recognition software. It may contain grammatical, syntax o r spelling errors. Electronically signed by: Juan Arrington M.D. 02/14/2021 9:07 AM
[2021-02-14 09:11] LABS: Alanine Aminotransferase 25 U/L (12-78); Albumin Level 2.3 gm/dl (3.4-5.0); Aspartate Aminotransferase 65 U/L (15-37); BUN Creatinine Ratio 10.5 (10-20); Blood Urea Nitrogen 8 mg/dl (7-18); Calcium 8.8 mg/dl (8.5-10.1); Carbon Dioxide 24 mmol/L (21-32); Chloride 108 mmol/L (98-107); Creatinine Clr Calc Pharmacy 153.5 ml/min; Est GFR (African American) 124.6 ml/min; Est GFR (Non-African American) 107.5 ml/min; Glucose 129 mg/dl (70-99); Magnesium 1.4 mg/dl (1.8-2.4); Potassium 3.6 mmol/L (3.5-5.1); Sodium 139 mmol/L (136-145)
[2021-02-14 09:14] LABS: Immature Granulocytes # (auto) 0.03 K/uL (0.00-0.02); Immature Granulocytes % (auto) 0.6 %; Lymphocytes # (auto) 0.73 K/uL (1.2-3.4); Monocytes # (auto) 0.08 K/uL (0.11-0.59); Monocytes % (auto) 1.6 %; Neutrophils # (auto) 4.03 K/uL (1.4-6.5); Neutrophils % (auto) 82.8 %
[2021-02-14 09:16] LABS: Albumin Globulin Ratio 0.5 (0.9-2); Alkaline Phosphatase 67 U/L (45-117); Bilirubin,Total 0.2 mg/dl (0.2-1); Globulin 4.2 gm/dl (2.5-4.0); Total Protein 6.5 gm/dl (6.4-8.2); Troponin I < 0.015 ng/ml (0-0.045)
[2021-02-14] MEDS ORDERED: REMDESIVIR 200 MG in SODIUM CHLORIDE 0.9% 210 ML IV STA (10:18)
--- NOTE | 2021-02-14 11:01 | History & Physical Report ---
Date of Service February 14, 2021 Assessment & Plan (1) COVID-19: Plan: COVID 19 pneumonia, about 8 days into her illness on presentation SEVERE disease with bilateral infiltrates, placed on high flow in the ED Dexamethasone 10mg IV in ED, will continue 6mg IV daily Remdesivir per protocol Baricitinib 4mg daily x [address] gamboa, Lasix 20mg IV to keep negative fluid balance flutter valve, incentive spirometer prone as often as possible, discussed the importance of this discussed plan with her mom at the bedside in the ED (2) Acute hypoxemic respiratory failure: Plan: due to COVID pneumonia CTA is negative for PE treatment for COVID, prone as often as possible Lasix for negative fluid balance (she says she was eating and drinking well) (3) Obesity (BMI 30-39.9): (4) Asthma: Plan: no wheezing, continue Duoneb PRN Fluticasone daily (5) Anxiety: Plan: continue Zoloft, Buspirone History of Present Illness Chief Complaint: I feel short of breath Primary Care Provider: Roxie Edouard 25 yo female with history of asthma, eosinophilic esophagitis, obesity, obstructive sleep apnea who presents today with shortness of breath and severe hypoxia at home. She says she felt sick about 7-8 days ago, generalized weakness, low grade fevers but no cough, no dyspnea, she never lost her sense of taste or smell. She has been eating and drinking fairly well, no diarrhea or vomiting. She says she was doing okay up until yesterday when she developed difficulty breathing. She just felt like she could not take a deep breath, no wheezing, no cough, no fever/chills. Early this morning her mother called EMS because breathing was worse. EMS found her to be cyanotic, saturations were 60% on room air. Placed on 15L oxy mask and transferred to hospital. Chest x-ray shows diffuse bilateral infiltrates and she was positive for COVID 19. 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 Her father is hospitalized with COVID but he has been here for 2 weeks, unsure if she was exposed to him when he was at home. In the ED she was on 15L mask with saturations dipping below 90%, desaturates with minimal movement. Placed on Vapotherm, 35L and 100%, saturations 94%. She was talking in complete sentences but tachypneic and belly breathing slightly at rest. No wheezing. Discussed plan with Dr. Chen at the bedside, appreciate his input. Allergies Allergy/AdvReac Type Severity Reaction Status Date / Time bee venom protein (honey bee) Allergy Unknown LOCAL Verified 02/14/21 09:41 SWELLING AT INJECTION SITE honey Allergy Unknown FACIAL Verified 02/14/21 09:41 SWELLING Penicillins Allergy Unknown RASH Verified 02/14/21 09:41 Home Medications Medication Instructions Recorded Confirmed Type albuterol sulfate 90 mcg/actuation 1 puff INHALATION Q4H PRN 02/14/21 02/14/21 History aerosol inhaler (Ventolin HFA) atomoxetine 40 mg capsule 40 mg PO BID 02/14/21 02/14/21 History buspirone 15 mg tablet 15 mg PO DAILY 02/14/21 02/14/21 History fluticasone furoate 100 1 inh INHALATION DAILY 02/14/21 02/14/21 History mcg-vilanterol 25 mcg/dose inhalation powder (Breo Ellipta) pantoprazole 40 mg tablet,delayed 40 mg PO BID 02/14/21 02/14/21 History release sertraline 100 mg tablet 100 mg PO DAILY 02/14/21 02/14/21 History sertraline 50 mg tablet 50 mg PO DAILY 02/14/21 02/14/21 History Past Med/Surg History Medical History (Updated 02/14/21 @ 12:12 by Dom Ocampo DO) Anxiety Asthma Eosinophilic esophagitis No pertinent family history No pertinent past medical history Obesity (BMI 30-39.9) Surgical History No pertinent past surgical history Family History (Updated 02/14/21 @ 12:12 by Dom Ocampo DO) Grandmother Rheumatoid arthritis Social History Smoking Status: Never smoker Preferred Language: Moldovan Feels Safe at Home: Yes Review of Systems Review of Systems: All systems reviewed & are unremarkable except as noted in Subjective Constitutional: + fever, + chills and + fatigue Respiratory: + cough, + chest congestion, + dyspnea, + dyspnea on exertion and + sputum production; no pain with cough and no wheezing Cardiovascular: no chest pain and no edema Gastrointestinal: no abdominal pain, no nausea, no vomiting, no constipation and no diarrhea/loose stools Psychiatric: + anxiety Physical Exam Physical Exam: General: well developed, obese young female, + anxious, distress, ill appearing, diaphoretic Neck: supple, trachea midline, normal thyroid Lungs: diminished, no wheezing, some crackles in bases, + tachypnea, + cough, + accessory muscle use, no distress Heart: tachycardic, S1 and S2, no murmur, peripheral pulses normal, capillary refill normal, no edema Abdomen: soft, NT, ND, + BS, no hepatomegaly, normal to percussion Extremities: normal in appearance, no cyanosis, no petechiae, strength is 5/5 bilaterally Neuro: awake, cooperative, moves all extremities, no focal motor deficits, CN II-XII intact, sensation in extremities intact, normal speech Skin: warm, dry, no rash, normal turgor Psych: Awake, alert oriented x 3, anxious affect Results & Data Results & Data ([facility]) Vital Signs (Past 12 Hours) Vital Signs Temp Pulse Pulse Resp BP BP Pulse Ox 02/14/21 09:42 122 H 20 107/59 L 95 02/14/21 09:30 121 H 16 98 02/14/21 09:17 94 02/14/21 08:45 39.2 C H 134 H 22 122/70 94 Laboratory Results Laboratory Results - last 24 hr 02/14/21 02/14/21 02/14/21 08:35 08:35 08:35 WBC 4.87 RBC 4.11 L Hgb 10.8 L Hct 33.9 L MCV 82.5 MCH 26.3 MCHC 31.9 L RDW Std Deviation 44.4 RDW Coeff of [place] 14.7 H Plt Count 159 MPV 10.2 Immature Gran % (Auto) 0.6 Neut % (Auto) 82.8 Lymph % (Auto) 15.0 [place] % (Auto) 1.6 Eos % (Auto) 0.0 Baso % (Auto) 0.0 Neut # (Auto) 4.03 Lymph # (Auto) 0.73 L [place] # (Auto) 0.08 L Eos # (Auto) 0.00 Baso # (Auto) 0.00 Immature Gran # (Auto) 0.03 H PT 9.8 INR 1.0 APTT 24.2 PTT Ratio 0.9 Sodium 139 Potassium 3.6 Chloride 108 H Carbon Dioxide 24 Anion Gap 7.0 BUN 8 Creatinine 0.76 Est Cr Clr Drug Dosing 153.5 Est GFR ( Amer) 124.6 Est GFR (Non-Af Amer) 107.5 BUN/Creatinine Ratio 10.5 Glucose 129 H Lactate Calcium 8.8 Magnesium 1.4 L Total Bilirubin 0.2 AST 65 H ALT 25 Alkaline Phosphatase 67 Troponin I < 0.015 C-Reactive Protein Total Protein 6.5 Albumin 2.3 L Globulin 4.2 H Albumin/Globulin Ratio 0.5 L Procalcitonin COVID-19 Eval Order SARS-CoV-2 (PCR) 02/14/21 02/14/21 02/14/21 08:35 08:35 08:35 WBC RBC Hgb Hct MCV MCH MCHC RDW Std Deviation RDW Coeff of [place] Plt Count MPV Immature Gran % (Auto) Neut % (Auto) Lymph % (Auto) [place] % (Auto) Eos % (Auto) Baso % (Auto) Neut # (Auto) Lymph # (Auto) [place] # (Auto) Eos # (Auto) Baso # (Auto) Immature Gran # (Auto) PT INR APTT PTT Ratio Sodium Potassium Chloride Carbon Dioxide Anion Gap BUN Creatinine Est Cr Clr Drug Dosing Est GFR ( Amer) Est GFR (Non-Af Amer) BUN/Creatinine Ratio Glucose Lactate 1.6 Calcium Magnesium Total Bilirubin AST ALT Alkaline Phosphatase Troponin I C-Reactive Protein Total Protein Albumin Globulin Albumin/Globulin Ratio Procalcitonin COVID-19 Eval Order Covid19 at [facility] SARS-CoV-2 (PCR) POSITIVE A* 02/14/21 02/14/21 08:35 09:28 WBC RBC Hgb Hct MCV MCH MCHC RDW Std Deviation RDW Coeff of [place] Plt Count MPV Immature Gran % (Auto) Neut % (Auto) Lymph % (Auto) [place] % (Auto) Eos % (Auto) Baso % (Auto) Neut # (Auto) Lymph # (Auto) [place] # (Auto) Eos # (Auto) Baso # (Auto) Immature Gran # (Auto) PT INR APTT PTT Ratio Sodium Potassium Chloride Carbon Dioxide Anion Gap BUN Creatinine Est Cr Clr Drug Dosing Est GFR ( Amer) Est GFR (Non-Af Amer) BUN/Creatinine Ratio Glucose Lactate Calcium Magnesium Total Bilirubin AST ALT Alkaline Phosphatase Troponin I C-Reactive Protein 12.30 H Total Protein Albumin Globulin Albumin/Globulin Ratio Procalcitonin 0.17 COVID-19 Eval Order SARS-CoV-2 (PCR) Diagnostic Findings CTA chest PE protocol IPRESSION: 1. No pulmonary emboli identified. 2. Extensive bilateral intermixed groundglass and airspace opacities compatible with multifocal pneumonia. 3. Pathologically enlarged mediastinal and hilar lymph nodes are likely reactive. 4. Small amount of pneumomediastinum. No pneumothorax. 5. Trace pleural effusions. XR chest 1V portable IMPRESSION: Extensive bilateral airspace opacities compatible with viral pneumonia. Medications Administered Current Inpatient Medications Acetaminophen (Acetaminophen 325 Mg Tab) 650 mg PO Q4H PRN PRN Reason: Pain or Fever Stop: 03/16/21 11:50 Albuterol (Albuterol Hfa 8 Gm Inhaler) 2 puffs INH Q4 PRN PRN Reason: Wheezing Stop: 03/16/21 11:59 Atomoxetine HCl (Atomoxetine Hcl 40 Mg Capsule) 40 mg PO BID ERNESTINE Stop: 03/16/21 20:59 Baricitinib (4 Mg Once Daily X14 Days) 4 mg PO DAILY ERNESTINE; Protocol Stop: 02/28/21 08:59 Buspirone HCl (Buspirone 15 Mg Tab) 15 mg PO DAILY ERNESTINE Stop: 03/17/21 08:59 Enoxaparin Sodium (Enoxaparin 0.5 Mg/Kg) 60 mg 0.5 mg/kg (60 mg) SQ Q12H ERNESTINE Stop: 03/16/21 11:50 Fluticasone/Vilanterol (Fluticasone/Vilanterol 100/25mcg 14 Puffs/Inhaler) 1 puffs INH DAILY ERNESTINE Stop: 03/16/21 11:14 Fluticasone/Vilanterol (Fluticasone/Vilanterol 100/25mcg 14 Puffs/Inhaler) 1 puffs INH DAILY ERNESTINE Stop: 03/17/21 08:59 Dexamethasone 6 mg/ Syringe 1.5 mls @ 1 mls/min IV Q24H ERNESTINE Stop: 03/17/21 08:59 Remdesivir 100 mg/ Sodium (Chloride) 250 mls @ 250 mls/hr IV Q24H ERNESTINE; Protocol Stop: 02/18/21 11:29 Furosemide 20 mg/ Syringe 2 mls @ 4 mls/min IV ONE ONE Stop: 02/14/21 12:04 Ondansetron HCl (Ondansetron Inj 2 Mg/Ml 2 Ml Vial) 4 mg IV Q6H PRN PRN Reason: Nausea Stop: 03/16/21 11:50 Pantoprazole Sodium (Pantoprazole 40 Mg Tab) 40 mg PO BID ERNESTINE Stop: 03/16/21 20:59 Sertraline HCl (Sertraline Hcl 100 Mg Tablet) 100 mg PO DAILY ERNESTINE Stop: 03/17/21 08:59 Sertraline HCl (Sertraline Hcl 50 Mg Tablet) 50 mg PO DAILY ERNESTINE Stop: 03/17/21 08:59 Sodium Chloride (Sodium Chloride 0.9% 10ml Flush) 30 ml IV Q24H ERNESTINE Stop: 02/18/21 11:52 Code Status & VTE Plan VTE Prophylaxis Plan VTE Prophylaxis will be ordered: Yes Critical Care Time Critical Care Time: Yes Total Critical Care Time: 37 PG Care Time/CCT Total # of Minutes Spent Total Time Spent with Patient: Total time spent is greater than 50% in coordination of care (as documented) at patient's floor/unit and/or counseling patient: Critical Care Time: Yes Total Critical Care Time: 37 This case had a high probability of a clinically significant, sudden, or life threatening deterioration of this patient's condition which required my full and direct attention, intervention and personal management. Coding Level of Care Code 64320 Initial Inpt Care Lvl 3 Diagnoses Obesity (BMI 30-39.9) E66.9 Asthma J45.909 COVID-19 U07.1 Acute hypoxemic respiratory failure J96.01 Anxiety F41.9 Additional Codes Critical Care Time - Critical Care Time: Yes ([id number])
--- NOTE | 2021-02-14 11:01 | Pulmonary Consultation ---
Date of Consultation February 14, 2021 Assessment & Plan (1) Abnormal CXR: (2) Acute hypoxemic respiratory failure: (3) Obesity (BMI 30-39.9): (4) Asthma: (5) Anemia: Impression: 25-year-old female with history of asthma, no PFTs available as well as eosinophilic esophagitis presenting with Covid pneumonitis and acute hypoxemic respiratory failure. Recommendation: 1. Acute hypoxemic respiratory failure: Continue supplemental oxygen on high flow titrated to keep saturations at or above 90%. May consider application of noninvasive positive pressure ventilation. Continue to monitor patient closely. She is at risk of clinical deterioration requiring intubation mechanical ventilation. 2. Covid pneumonitis: Dexamethasone 6 mg daily per protocol. She is about 7 or 8 days out from her onset of symptoms so remdesivir technically would be okay although I think she is outside the window for viral replication. Her CRP is elevated and she qualifies for baricitinib. Discussed with pharmacy and will initiate dosing. The patient was counseled regarding potential risks of immunos uppression associated with this medication. 3. DVT prophylaxis per ACC P guidelines. 4. Her procalcitonin is negative so would hold antibiotics for now. 5. Asthma: Continue Breo. Could consider transitioning to nebulized budesonide if she has difficulty with breath-hold. Albuterol nebs/MDI as needed We will continue to follow closely with you. Feel free to contact us with questions or concerns in the interim History of Present Illness History of Present Illness Asked by hospitalist to evaluate this patient being admitted with hypoxemic respiratory failure secondary to Covid pneumonia. History is obtained from discussion with the hospitalist and review the electronic medical record. Patient is a 25-year-old female with a history of eosinophilic esophagitis and asthma. She is apparently been followed by [facility] allergy immunology. She has been on prednisone once or twice in the last several years for pneumonia/asthma exacerbations. She does use inhalers chronically. She is a lifelong non-smoker. She does not vape or use e-cigarettes. No significant occupational or environmental exposures. She does work at a daycare. She is not vaccinated. Her father was recently hospitalized with Covid. The patient reports that she was diagnosed about 7 days ago. She is only had shortness of breath going on for about 24 hours. She denies any chest tightness or wheezing. She has had a nonproductive cough. Her initial presenting symptoms were upper respiratory with nasal congestion and URI symptoms. Allergies Allergy/AdvReac Type Severity Reaction Status Date / Time bee venom protein (honey bee) Allergy Unknown LOCAL Verified 02/14/21 09:41 SWELLING AT INJECTION SITE honey Allergy Unknown FACIAL Verified 02/14/21 09:41 SWELLING Penicillins Allergy Unknown RASH Verified 02/14/21 09:41 Home Medications Medication Instructions Recorded Confirmed Type albuterol sulfate 90 mcg/actuation 1 puff INHALATION Q4H PRN 02/14/21 02/14/21 History aerosol inhaler (Ventolin HFA) atomoxetine 40 mg capsule 40 mg PO BID 02/14/21 02/14/21 History buspirone 15 mg tablet 15 mg PO DAILY 02/14/21 02/14/21 History fluticasone furoate 100 1 inh INHALATION DAILY 02/14/21 02/14/21 History mcg-vilanterol 25 mcg/dose inhalation powder (Breo Ellipta) pantoprazole 40 mg tablet,delayed 40 mg PO BID 02/14/21 02/14/21 History release sertraline 100 mg tablet 100 mg PO DAILY 02/14/21 02/14/21 History sertraline 50 mg tablet 50 mg PO DAILY 02/14/21 02/14/21 History Patient History Medical History (Updated 02/14/21 @ 11:11 by Moi Chen MD) No pertinent family history No pertinent past medical history Surgical History (Updated 02/10/21 @ 00:07 by Ant Rondon) No pertinent past surgical history Social History Smoking Status: Never smoker Preferred Language: [place] Feels Safe at Home: Yes Review of Systems Review of Systems: Please refer to admission H&P. No additions or deletions Physical Exam Constitutional: Obese female. No obvious distress. No conversational dyspnea Neck: trachea midline, no thyromegaly Respiratory: normal respiratory effort; no respiratory distress and no labored breathing Auscultation: + rales; no wheezes Cardiovascular: RRR, no murmur, no edema Gastrointestinal (Abdomen): normal bowel sounds, soft, nontender, no hepatosplenomegaly Musculoskeletal: Extremities: extremities normal to inspection Skin: no rashes, warm and dry Neurologic: Nonfocal exam Lymphatic: no cervical lymphadenopathy Results & Data Results & Data ([facility]) Vital Signs (Past 12 Hours) Vital Signs Temp Pulse Pulse Resp BP BP Pulse Ox 02/14/21 09:42 122 H 20 107/59 L 95 02/14/21 09:30 121 H 16 98 02/14/21 09:17 94 02/14/21 08:45 39.2 C H 134 H 22 122/70 94 Laboratory Results 02/14/21 08:35 02/14/21 08:35 Procalcitonin negative at 0.17. CRP 12.3 Diagnostic Findings Chest x-ray independently reviewed. Diffuse bilateral opacities. No pleural effusion or pneumothorax PG Care Time/CCT Total # of Minutes Spent Total Time Spent with Patient: Total time spent is greater than 50% in coordination of care (as documented) at patient's floor/unit and/or counseling patient: Coding Level of Care Code 34418 Inpt Consult Level 4 Diagnoses Abnormal CXR R93.89 Acute hypoxemic respiratory failure J96.01 Obesity (BMI 30-39.9) E66.9 Asthma J45.909 Anemia D64.9
[2021-02-14] MEDS ORDERED: ALBUTEROL HFA 8 GM INHALER INH PRN (11:13)
[2021-02-14] MEDS ORDERED: OPTIRAY 320 125ml IV ONE (11:27)
--- NOTE | 2021-02-14 11:43 | CT Scan Report ---
CT angio chest PE protocol CT DOSE: 531.44 mGycm HISTORY: 25 years-old Female with PE. Acute cough with shortness of breath TECHNIQUE: Multiple CTA images of the chest were obtained after the intravenous administration of 120 ml Optiray. Coronal and sagittal MIPS were obtained from the axial data set and were submitted for review. All measurements were obtained according to NASCET criteria. A dose lowering technique was u tilized adhering to the principles of ALARA. COMPARISON: Chest radiograph of same day FINDINGS: CTA: The heart is upper limits of normal in size. No pericardial effusion. Normal thoracic aorta. Respirat ory motion artifact and contrast bolus timing limits evaluation of the pulmonary artery. No pulmonary emboli identified. CT CHEST: Unremarkable thyroid. Pathologically enlarged mediastinal and hilar lymph nodes measure up to approxi mately 12 mm. Trace pleural effusions. No pneumothorax. Small amount of pneumomediastinum is noted wi thin the subcarinal distribution tracking along the distal esophagus. Extensive bilateral intermixed groundglass and airspace opacities. There is mild associated intralobular septal thickening. Central airways are patent. Hepatosplenomegaly with hepatic steatosis. Mild nonspecific distal esophageal wall thickening. Unrema rkable soft tissues. No acute fracture. IMPRESSION: 1. No pulmonary emboli identified. 2. Extensive bilateral intermixed groundglass and airspace opacities compatible with multifocal pneum onia. 3. Pathologically enlarged mediastinal and hilar lymph nodes are likely reactive. 4. Small amount of pneumomediastinum. No pneumothorax. 5. Trace pleural effusions. ACT 112: Negative or not required by law. The above report was generated using voice recognition software. It may contain grammatical, syntax o r spelling errors. Electronically signed by: Juan Arrington M.D. 02/14/2021 11:42 AM
[2021-02-14] MEDS ORDERED: ONDANSETRON INJ 2 MG/ML 2 ML VIAL IV PRN (11:51)
[2021-02-14] MEDS ORDERED: ACETAMINOPHEN 325 MG TAB PO PRN (11:51)
[2021-02-14] MEDS ORDERED: FUROSEMIDE 20 MG in SYRINGE 0 ML IV ONE (12:03)
[2021-02-14] MEDS ORDERED: ALBUT/IPRATROP 3MG/0.5MG NEB 3 ML VIAL NEB PRN (12:59)
[2021-02-14] MEDS ORDERED: FUROSEMIDE 40 MG/4 ML VIAL IV ONE (13:00)
[2021-02-14] MEDS: FLUTICASONE/VILANTEROL 100/25MCG 14 PUFFS/INHALER INH SCH (13:41)
[2021-02-14] MEDS: 4 mg Once Daily x14 days PO SCH (13:42)
[2021-02-14] MEDS: ENOXAPARIN INJ 60 MG/0.6 ML SYR SQ SCH ×2 (14:59→20:33)
[2021-02-14] MEDS: PANTOprazole 40 MG TAB PO SCH (17:08)
[2021-02-14] MEDS: ATOMOXETINE HCL 40 MG CAPSULE PO SCH (20:33)
--- NOTE | 2021-02-14 22:22 | Electrocardiogram Report ---
Test Reason : Blood Pressure : / mmHG Vent. Rate : 132 BPM Atrial Rate : 132 BPM P-R Int : 128 ms QRS Dur : 082 ms QT Int : 304 ms P-R-T Axes : 043 032 053 degrees QTc Int : 450 ms Sinus tachycardia Nonspecific T wave abnormality Abnormal ECG No previous ECGs available Confirmed by Christian Barrera ([id number]) on 02/14/2021 10:22:06 PM Referred By: REFERRED SELF Confirmed By:Christian Barrera
[2021-02-14] MEDS ORDERED: LORazepam 1 MG/2 ML VIAL IV STA (23:15)
[2021-02-15 06:24] LABS: Hemoglobin 10.8 g/dL (12.0-16.0); Mean Corpuscular Hemoglobin 26.5 pg (25-34); Mean Corpuscular Hgb Conc 31.8 g/dL (32-36); Mean Corpuscular Volume 83.5 fL (80-100); Mean Platelet Volume 9.8 fL (7.4-10.4); Platelet Count 187 K/uL (130-400); RDW Coefficient of Variation 14.7 % (11.5-14.5); RDW Standard Deviation 45.3 fL (36.4-46.3); Red Blood Count 4.07 M/uL (4.2-5.4); White Blood Count 4.89 K/uL (4.8-10.8)
[2021-02-15 07:01] LABS: BUN Creatinine Ratio 20.7 (10-20); Calcium 8.3 mg/dl (8.5-10.1); Est GFR (Non-African American) 121.7 ml/min; Magnesium 1.6 mg/dl (1.8-2.4)
[2021-02-15] MEDS: PANTOprazole 40 MG TAB PO SCH ×2 (08:42→16:33)
[2021-02-15] MEDS: ATOMOXETINE HCL 40 MG CAPSULE PO SCH ×2 (08:42→19:49)
[2021-02-15] MEDS: busPIRone 15 MG TAB PO SCH (08:43)
[2021-02-15] MEDS: FUROSEMIDE 20 MG in SYRINGE 0 ML IV SCH (08:43)
[2021-02-15] MEDS: ENOXAPARIN INJ 60 MG/0.6 ML SYR SQ SCH ×2 (08:43→19:49)
[2021-02-15] MEDS: dexAMETHasone 6 MG in SYRINGE 0 ML IV SCH (08:43)
[2021-02-15] MEDS: SERTRALINE HCL 50 MG TABLET PO SCH (08:44)
[2021-02-15] MEDS: SERTRALINE HCL 100 MG TABLET PO SCH (08:44)
[2021-02-15] MEDS: FLUTICASONE/VILANTEROL 100/25MCG 14 PUFFS/INHALER INH SCH (08:44)
[2021-02-15] MEDS ORDERED: FLUTICASONE/VILANTEROL 100/25MCG 14 PUFFS/INHALER INH SCH (09:00)
[2021-02-15] MEDS: 4 mg Once Daily x14 days PO SCH (09:04)
--- NOTE | 2021-02-15 09:12 | Pulmonology Progress Note ---
Date of Service February 15, 2021 Assessment & Plan (1) Abnormal CXR: (2) Acute hypoxemic respiratory failure: (3) Obesity (BMI 30-39.9): (4) Asthma: (5) Anemia: Plan: Impression: 25-year-old female with history of asthma, no PFTs available as well as eosinophilic esophagitis presenting with Covid pneumonitis and acute hypoxemic respiratory failure. She remains with a significant oxygen requirement but states she feels she is breathing okay currently. Recommendation: 1. Acute hypoxemic respiratory failure: Continue supplemental oxygen on high flow titrated to keep saturations at or above 90%. May consider application of noninvasive positive pressure ventilation. Continue to monitor patient closely. She is at risk of clinical deterioration requiring intubation mechanical ventilation. Continue to self proning as tolerated although it is unclear if this made a significant benefit 2. Covid pneumonitis: Dexamethasone 6 mg daily per protocol. Continue baricitinib. Doubt remdesivir is can offer her a clinical benefit at this point in time and would favor discontinuing it. Will defer to primary service. Patient's primary service is going to reach out to [facility] to see whether or not she would potentially be an ECMO candidate. Try and keep I's and O's even. Monitor for signs of secondary infection. 3. DVT prophylaxis per ACCP guidelines. 4. Her procalcitonin is negative so would hold antibiotics for now. 5. Asthma: Continue Breo. Could consider transitioning to nebulized budesonide if she has difficulty with breath-hold. Albuterol nebs/MDI as needed We will continue to follow closely with you. Patient is at significant risk for clinical deterioration. Feel free to contact us with questions or concerns in the interim Admission and Anticipated Discharge Date Admission Date: February 14, 2021 Subjective Patient seen and examined. EMR reviewed. The patient is self proning. She is on high flow oxygen. She does not appear in any acute distress and states that her breathing is fine. She does have a dry intermittent cough. No chest pain. No palpitations. She feels that she is doing well clinically Review of Systems Review of Systems: Complete 12 point review systems negative Physical Exam Neck: trachea midline, no thyromegaly Respiratory: normal respiratory effort; no respiratory distress and no labored breathing Auscultation: + rales; no wheezes Cardiovascular: RRR, no murmur, no edema Gastrointestinal (Abdomen): normal bowel sounds, soft, nontender, no hepatosplenomegaly Musculoskeletal: Extremities: extremities normal to inspection Skin: no rashes, warm and dry Lymphatic: no cervical lymphadenopathy Results & Data Results & Data ([facility]) Vital Signs (Past 12 Hours) Vital Signs Temp Pulse Pulse Resp BP Pulse Ox 02/15/21 07:16 37.3 C 119 H 24 152/91 H 90 02/15/21 05:56 117 H 22 89 L 02/15/21 05:19 38.5 C H 118 H 18 154/79 H 98 02/15/21 04:57 116 H 02/15/21 03:29 119 H 20 93 02/15/21 00:44 109 H 26 H 89 L 02/14/21 23:30 37.9 C H 109 H 18 132/81 94 02/14/21 21:46 111 H 18 91 Critical Care Results & Data Vital Signs (Past 12 Hours) Vital Signs Temp Pulse Pulse Resp BP Pulse Ox 02/15/21 07:16 37.3 C 119 H 24 152/91 H 90 02/15/21 05:56 117 H 22 89 L 02/15/21 05:19 38.5 C H 118 H 18 154/79 H 98 02/15/21 04:57 116 H 02/15/21 03:29 119 H 20 93 02/15/21 00:44 109 H 26 H 89 L 02/14/21 23:30 37.9 C H 109 H 18 132/81 94 02/14/21 21:46 111 H 18 91 Lab & Micro Results (Past 24 Hours) RBC 4.07 M/uL (4.2-5.4) L 02/15/21 WBC 4.89 K/uL (4.8-10.8) 02/15/21 Hgb 10.8 g/dL (12.0-16.0) L 02/15/21 Hct 34.0 % (37-47) L 02/15/21 MCV 83.5 fL (80-100) 02/15/21 MCH 26.5 pg (25-34) 02/15/21 MCHC 31.8 g/dL (32-36) L 02/15/21 RDW Standard Deviation 45.3 fL (36.4-46.3) 02/15/21 RDW Coefficient of Variation 14.7 % (11.5-14.5) H 02/15/21 Plt Count 187 K/uL (130-400) 02/15/21 MPV 9.8 fL (7.4-10.4) 02/15/21 Na 139 mmol/L (136-145) 02/15/21 K 4.0 mmol/L (3.5-5.1) 02/15/21 Cl 106 mmol/L (98-107) 02/15/21 CO2 26 mmol/L (21-32) 02/15/21 Anion Gap 8.0 (3-11) 02/15/21 BUN 14 mg/dl (7-18) 02/15/21 Creatinine 0.65 mg/dl (0.6-1.2) 02/15/21 Estimated GFR ( Amer) 141.0 ml/min 02/15/21 Estimated GFR (Non-Af Amer) 121.7 ml/min 02/15/21 BUN/Creatinine Ratio 20.7 (10-20) H 02/15/21 Glu 86 mg/dl (70-99) 02/15/21 Ca 8.3 mg/dl (8.5-10.1) L 02/15/21 Mg 1.6 mg/dl (1.8-2.4) L 02/15/21 05:56 02/15/21 Calcium Level 8.3 mg/dl (8.5-10.1) L 02/15/21 05:56 02/15/21 Microbiology 02/14/21 08:35 Aerobic Blood Culture - Preliminary Blood No growth in Aerobic bottle after 24 hours. Anaerobic Blood Culture - Preliminary No growth in Anaerobic bottle after 24 hours. Diagnostic Findings (Past 24 Hours) Chest CTA 02/14/21 09:00 CT angio chest PE protocol CT DOSE: 531.44 mGycm HISTORY: 25 years-old Female with PE. Acute cough with shortness of breath TECHNIQUE: Multiple CTA images of the chest were obtained after the intravenous administration of 120 ml Optiray. Coronal and sagittal MIPS were obtained from the axial data set and were submitted for review. All measurements were obtained according to NASCET criteria. A dose lowering technique was utilized adhering to the principles of ALARA. COMPARISON: Chest radiograph of same day FINDINGS: CTA: The heart is upper limits of normal in size. No pericardial effusion. Normal thoracic aorta. Respiratory motion artifact and contrast bolus timing limits evaluation of the pulmonary artery. No pulmonary emboli identified. CT CHEST: Unremarkable thyroid. Pathologically enlarged mediastinal and hilar lymph nodes measure up to approximately 12 mm. Trace pleural effusions. No pneumothorax. Small amount of pneumomediastinum is noted within the subcarinal distribution tracking along the distal esophagus. Extensive bilateral intermixed groundglass and airspace opacities. There is mild associated intralobular septal thickening. Central airways are patent. Hepatosplenomegaly with hepatic steatosis. Mild nonspecific distal esophageal wall thickening. Unremarkable soft tissues. No acute fracture. IMPRESSION: 1. No pulmonary emboli identified. 2. Extensive bilateral intermixed groundglass and airspace opacities compatible with multifocal pneumonia. 3. Pathologically enlarged mediastinal and hilar lymph nodes are likely reactive. 4. Small amount of pneumomediastinum. No pneumothorax. 5. Trace pleural effusions. ACT 112: Negative or not required by law. The above report was generated using voice recognition software. It may contain grammatical, syntax or spelling errors. Electronically signed by: Juan Arrington M.D. 02/14/2021 11:42 AM I & O Totals 24 Hours 02/14/21 02/15/21 02/16/21 06:59 06:59 06:59 Intake Total 1150 / 1150 Output Total 3350 / 3350 Balance -2200 / -2200 Cumulative 02/14/21 07:59 thru 02/15/21 05:23 Intake Total 1150 Output Total 3350 Balance -2200 RT Ventilator Mngmt (Last Documented) Ventilator Ordered Settings Respiratory Rate 24 02/15/21 07:16 Fraction of Inspired Oxygen 100 02/15/21 05:56 Ventilator - PT Measurements Respiratory Rate 24 PG Care Time/CCT Total # of Minutes Spent Total Time Spent with Patient: Total time spent is greater than 50% in coordination of care (as documented) at patient's floor/unit and/or counseling patient: Coding Level of Care Code 81153 Subseq Hosp Care Lvl 2 Diagnoses Abnormal CXR R93.89 Acute hypoxemic respiratory failure J96.01 Obesity (BMI 30-39.9) E66.9 Asthma J45.909 Anemia D64.9
--- NOTE | 2021-02-15 09:20 | Hospitalist Progress Note ---
Date of Service February 15, 2021 Assessment & Plan (1) COVID-19: Plan: COVID 19 pneumonia, about 8 days into her illness on presentation SEVERE disease with bilateral infiltrates, placed on high flow in the ED Dexamethasone 10mg IV in ED, will continue 6mg IV daily, day 2 Remdesivir per protocol, day 2 Baricitinib 4mg daily x 14 days, day 2 place gamboa, Lasix 20mg IV to keep negative fluid balance, great response yesterday and today, continue qAM follow BMP flutter valve, incentive spirometer prone as often as possible, discussed the importance of this, she is very compliant, slept all night on her stomach discussed plan with her mom at the bedside in the ED called her with update this morning (2) Acute hypoxemic respiratory failure: Plan: due to COVID pneumonia CTA is negative for PE treatment for COVID, prone as often as possible, very compliant Lasix for negative fluid balance, gamboa placed to limit movement (3) Obesity (BMI 30-39.9): Plan: encourage weight loss after discharge (4) Asthma: Plan: no wheezing, continue Duoneb PRN Fluticasone daily (5) Anxiety: Plan: continue Zoloft, Buspirone Plan: continue current regimen will call [facility] to discuss ECMO but she is stable and compliant at this time Admission and Anticipated Discharge Date Admission Date: February 14, 2021 Subjective patient is feeling well, sitting up and finished all of her breakfast no distress at all, using belly muscles slightly, saturations 90-94% while sitting upright she said she slept on her stomach all night, no issues, plans to lay prone again today throughout the day encouraged her that she is doing everything she needs to be doing reviewed labs, CRP up to 20 from 12, Cr and WBC stable discussed with Dr. Chen, continue current plan and hope for the best I called her mom to update her her dad is in room 222, will try to get the RN to take him over in wheelchair with some oxygen Review of Systems Review of Systems: All systems reviewed & are unremarkable except as noted in Subjective Respiratory: + cough (dry cough at night), + dyspnea and + dyspnea on exertion Psychiatric: + anxiety Physical Exam Physical Exam: General: well developed, obese young female, + anxious, no distress, ill appearing, diaphoretic Neck: supple, trachea midline, normal thyroid Lungs: diminished, no wheezing, some crackles in bases, + tachypnea, + cough, + accessory muscle use, no distress Heart: tachycardic, S1 and S2, no murmur, peripheral pulses normal, capillary refill normal, no edema Abdomen: soft, NT, ND, + BS, no hepatomegaly, normal to percussion Extremities: normal in appearance, no cyanosis, no petechiae, strength is 5/5 bilaterally Neuro: awake, cooperative, moves all extremities, no focal motor deficits, CN II-XII intact, sensation in extremities intact, normal speech Skin: warm, dry, no rash, normal turgor Psych: Awake, alert oriented x 3, anxious affect Results & Data Results & Data ([facility]) Vital Signs (Past 12 Hours) Vital Signs Temp Pulse Pulse Resp BP Pulse Ox 02/15/21 07:16 37.3 C 119 H 24 152/91 H 90 02/15/21 05:56 117 H 22 89 L 02/15/21 05:19 38.5 C H 118 H 18 154/79 H 98 02/15/21 04:57 116 H 02/15/21 03:29 119 H 20 93 02/15/21 00:44 109 H 26 H 89 L 02/14/21 23:30 37.9 C H 109 H 18 132/81 94 02/14/21 21:46 111 H 18 91 Laboratory Results Laboratory Results - last 24 hr 02/14/21 02/14/21 02/14/21 08:35 08:35 09:28 WBC RBC Hgb Hct MCV MCH MCHC RDW Std Deviation RDW Coeff of Akua Plt Count MPV Sodium Potassium Chloride Carbon Dioxide Anion Gap BUN Creatinine Est Cr Clr Drug Dosing Est GFR ( Amer) Est GFR (Non-Af Amer) BUN/Creatinine Ratio Glucose Calcium Magnesium C-Reactive Protein 12.30 H Procalcitonin 0.17 SARS-CoV-2 (PCR) POSITIVE A* 02/15/21 02/15/21 05:56 05:56 WBC 4.89 RBC 4.07 L Hgb 10.8 L Hct 34.0 L MCV 83.5 MCH 26.5 MCHC 31.8 L RDW Std Deviation 45.3 RDW Coeff of Akua 14.7 H Plt Count 187 MPV 9.8 Sodium 139 Potassium 4.0 Chloride 106 Carbon Dioxide 26 Anion Gap 8.0 BUN 14 D Creatinine 0.65 Est Cr Clr Drug Dosing 178.0 Est GFR ( Amer) 141.0 Est GFR (Non-Af Amer) 121.7 BUN/Creatinine Ratio 20.7 H Glucose 86 Calcium 8.3 L Magnesium 1.6 L C-Reactive Protein 20.00 H Procalcitonin SARS-CoV-2 (PCR) Medications Administered Current Inpatient Medications Acetaminophen (Acetaminophen 325 Mg Tab) 650 mg PO Q4H PRN PRN Reason: Pain or Fever Stop: 03/16/21 11:50 Albuterol (Albuterol Hfa 8 Gm Inhaler) 2 puffs INH Q4 PRN PRN Reason: Wheezing Stop: 03/16/21 11:59 Albuterol (Albut/Ipratrop 3mg/0.5mg Neb 3 Ml Vial) 3 ml NEB Q4R PRN PRN Reason: Shortness Of Breath Or Wheezing Stop: 03/16/21 14:59 Atomoxetine HCl (Atomoxetine Hcl 40 Mg Capsule) 40 mg PO BID [facility] Stop: 03/16/21 20:59 Last Admin: 02/15/21 08:42 Dose: 40 mg Documented by: Baricitinib (4 Mg Once Daily X14 Days) 4 mg PO DAILY [facility]; Protocol Stop: 02/28/21 08:59 Last Admin: 02/15/21 09:04 Dose: 4 mg Documented by: Buspirone HCl (Buspirone 15 Mg Tab) 15 mg PO DAILY [facility] Stop: 03/17/21 08:59 Last Admin: 02/15/21 08:43 Dose: 15 mg Documented by: Enoxaparin Sodium (Enoxaparin Inj 60 Mg/0.6 Ml Syr) 60 mg SQ Q12 [facility] Stop: 03/16/21 13:59 Last Admin: 02/15/21 08:43 Dose: 60 mg Documented by: Fluticasone/Vilanterol (Fluticasone/Vilanterol 100/25mcg 14 Puffs/Inhaler) 1 puffs INH DAILY [facility] Stop: 03/16/21 11:14 Last Admin: 02/15/21 08:44 Dose: 1 puffs Documented by: Dexamethasone 6 mg/ Syringe 1.5 mls @ 1 mls/min IV Q24H [facility] Stop: 03/17/21 08:59 Last Admin: 02/15/21 08:43 Dose: 1 mls/min Documented by: Remdesivir 100 mg/ Sodium (Chloride) 250 mls @ 250 mls/hr IV Q24H [facility]; Protocol Stop: 02/18/21 12:59 Furosemide 20 mg/ Syringe 2 mls @ 4 mls/min IV QAM [facility] Stop: 03/17/21 08:59 Last Admin: 02/15/21 08:43 Dose: 4 mls/min Documented by: Ondansetron HCl (Ondansetron Inj 2 Mg/Ml 2 Ml Vial) 4 mg IV Q6H PRN PRN Reason: Nausea Stop: 03/16/21 11:50 Pantoprazole Sodium (Pantoprazole 40 Mg Tab) 40 mg PO BID@0730,1630 [facility] Stop: 03/16/21 16:29 Last Admin: 02/15/21 08:42 Dose: 40 mg Documented by: Sertraline HCl (Sertraline Hcl 100 Mg Tablet) 100 mg PO DAILY [facility] Stop: 03/17/21 08:59 Last Admin: 02/15/21 08:44 Dose: 100 mg Documented by: Sertraline HCl (Sertraline Hcl 50 Mg Tablet) 50 mg PO DAILY [facility] Stop: 03/17/21 08:59 Last Admin: 02/15/21 08:44 Dose: 50 mg Documented by: Sodium Chloride (Sodium Chloride 0.9% 10ml Flush) 30 ml IV Q24H [facility] Stop: 02/19/21 12:01 PG Care Time/CCT Total # of Minutes Spent Total Time Spent: 32 Total Time Spent with Patient: Total time spent is greater than 50% in coordination of care (as documented) at patient's floor/unit and/or counseling patient: Coding Level of Care Code 17694 Subseq Hosp Care Lvl 3 (25 - SIGNIFICANT, SEPARATELY IDENTIFIABLE ) Diagnoses COVID-19 U07.1 Acute hypoxemic respiratory failure J96.01 Obesity (BMI 30-39.9) E66.9 Asthma J45.909 Anxiety F41.9
[2021-02-15] MEDS: SODIUM CHLORIDE 0.9% 10ML FLUSH IV SCH (10:12)
[2021-02-15] MEDS ORDERED: REMDESIVIR 100 MG in SODIUM CHLORIDE 0.9% 230 ML IV SCH (12:00)
[2021-02-16 06:39] LABS: Calcium 8.7 mg/dl (8.5-10.1); Creatinine Clr Calc Pharmacy 180.3 ml/min; Est GFR (African American) 142.5 ml/min; Est GFR (Non-African American) 122.9 ml/min; Potassium 4.2 mmol/L (3.5-5.1)
[2021-02-16] MEDS: PANTOprazole 40 MG TAB PO SCH ×2 (07:58→16:24)
[2021-02-16] MEDS: ATOMOXETINE HCL 40 MG CAPSULE PO SCH ×2 (08:51→19:54)
[2021-02-16] MEDS: FLUTICASONE/VILANTEROL 100/25MCG 14 PUFFS/INHALER INH SCH (08:52)
[2021-02-16] MEDS: 4 mg Once Daily x14 days PO SCH (08:52)
[2021-02-16] MEDS: SERTRALINE HCL 50 MG TABLET PO SCH (08:52)
[2021-02-16] MEDS: SERTRALINE HCL 100 MG TABLET PO SCH (08:52)
[2021-02-16] MEDS: busPIRone 15 MG TAB PO SCH (08:52)
[2021-02-16] MEDS: FUROSEMIDE 20 MG in SYRINGE 0 ML IV SCH (08:53)
[2021-02-16] MEDS: dexAMETHasone 6 MG in SYRINGE 0 ML IV SCH (08:53)
[2021-02-16] MEDS: ENOXAPARIN INJ 60 MG/0.6 ML SYR SQ SCH ×2 (08:53→19:54)
--- NOTE | 2021-02-16 09:25 | Hospitalist Progress Note ---
Date of Service February 16, 2021 Assessment & Plan (1) COVID-19: Plan: COVID 19 pneumonia, about 8 days into her illness on presentation SEVERE disease with bilateral infiltrates, placed on high flow in the ED Dexamethasone 10mg IV in ED, will continue 6mg IV daily, day 3 Baricitinib 4mg daily x 14 days, day 3 stopped Remdesivir as unlikely to help this far into illness placed gamboa, Lasix 20mg IV qAM to keep negative fluid balance, responding well, Cr and K are stable flutter valve, incentive spirometer prone as often as possible, discussed the importance of this, she is very compliant, slept all night on her stomach again and spends a lot of time on her belly during the day called mom with update (2) Acute hypoxemic respiratory failure: Plan: due to COVID pneumonia CTA is negative for PE treatment for COVID, prone as often as possible, very compliant Lasix for negative fluid balance, gamboa placed to limit movement making improvements, down to 50L and 70% from 60L and 100% (3) ARDS (adult respiratory distress syndrome): Plan: due to COVID pneumonia dexamethasone, prone position, negative fluid balance with Lasix daily (4) Obesity (BMI 30-39.9): Plan: encourage weight loss after discharge (5) Asthma: Plan: no wheezing, continue Duoneb PRN Fluticasone daily (6) Anxiety: Plan: continue Zoloft, Buspirone less anxious today, she sees that treatment is working Plan: continue current regimen discussed ECMO with [facility], no need to consider unless she would need intubated call them if she gets worse Admission and Anticipated Discharge Date Admission Date: February 14, 2021 Subjective patient had a good night, slept on her belly all night long, no issues she got dizzy and desaturated this morning when she flipped over to quickly to her back and sat up, turned up her oxygen to 80%, recovered she is eating well, good appetite, gamboa in place, responding well to Lasix labs show Cr and K are stable no chest pain, minimal cough, no fever/chills, no diarrhea oxygen down to 50L and 70%, big improvement encouraged her to continue to do what she is doing, she is very compliant less anxious now updated her mother over the phone Review of Systems Review of Systems: All systems reviewed & are unremarkable except as noted in Subjective Constitutional: + sweats; no fever, no fatigue and no weakness Respiratory: + cough, + dyspnea and + dyspnea on exertion; no sputum production Cardiovascular: no chest pain and no edema Psychiatric: + anxiety Physical Exam Physical Exam: General: well developed, obese young female, no distress, ill appearing, diaphoretic Neck: supple, trachea midline, normal thyroid Lungs: diminished, no wheezing, some crackles in bases, + tachypnea, + cough, + accessory muscle use, no distress Heart: tachycardic, S1 and S2, no murmur, peripheral pulses normal, capillary refill normal, no edema Abdomen: soft, NT, ND, + BS, no hepatomegaly, normal to percussion Extremities: normal in appearance, no cyanosis, no petechiae, strength is 5/5 bilaterally Neuro: awake, cooperative, moves all extremities, no focal motor deficits, CN II-XII intact, sensation in extremities intact, normal speech Skin: warm, dry, no rash, normal turgor Psych: Awake, alert oriented x 3, euthymic affect Results & Data Results & Data ([facility]) Vital Signs (Past 12 Hours) Vital Signs Temp Pulse Pulse Resp BP BP Pulse Ox 02/16/21 09:00 114 H 22 113/73 90 02/16/21 07:54 36.7 C 111 H 22 126/86 97 02/16/21 05:37 74 32 H 96 02/16/21 03:13 65 34 H 96 02/16/21 02:49 36.9 C 91 H 16 139/92 100 02/15/21 23:30 36.5 C 98 H 18 125/83 95 02/15/21 23:13 93 H 02/15/21 23:02 96 H 30 H 95 02/15/21 22:18 93 H Laboratory Results Laboratory Results - last 24 hr 02/16/21 05:34 Sodium 138 Potassium 4.2 Chloride 106 Carbon Dioxide 28 Anion Gap 4.0 BUN 17 Creatinine 0.63 Est Cr Clr Drug Dosing 180.3 Est GFR ( Amer) 142.5 Est GFR (Non-Af Amer) 122.9 BUN/Creatinine Ratio 27.0 H Glucose 111 H Calcium 8.7 Medications Administered Current Inpatient Medications Acetaminophen (Acetaminophen 325 Mg Tab) 650 mg PO Q4H PRN PRN Reason: Pain or Fever Stop: 03/16/21 11:50 Albuterol (Albuterol Hfa 8 Gm Inhaler) 2 puffs INH Q4 PRN PRN Reason: Wheezing Stop: 03/16/21 11:59 Albuterol (Albut/Ipratrop 3mg/0.5mg Neb 3 Ml Vial) 3 ml NEB Q4R PRN PRN Reason: Shortness Of Breath Or Wheezing Stop: 03/16/21 14:59 Atomoxetine HCl (Atomoxetine Hcl 40 Mg Capsule) 40 mg PO BID [facility] Stop: 03/16/21 20:59 Last Admin: 02/16/21 08:51 Dose: 40 mg Documented by: Baricitinib (4 Mg Once Daily X14 Days) 4 mg PO DAILY [facility]; Protocol Stop: 02/28/21 08:59 Last Admin: 02/16/21 08:52 Dose: 4 mg Documented by: Buspirone HCl (Buspirone 15 Mg Tab) 15 mg PO DAILY [facility] Stop: 03/17/21 08:59 Last Admin: 02/16/21 08:52 Dose: 15 mg Documented by: Enoxaparin Sodium (Enoxaparin Inj 60 Mg/0.6 Ml Syr) 60 mg SQ Q12 [facility] Stop: 03/16/21 13:59 Last Admin: 02/16/21 08:53 Dose: 60 mg Documented by: Fluticasone/Vilanterol (Fluticasone/Vilanterol 100/25mcg 14 Puffs/Inhaler) 1 puffs INH DAILY [facility] Stop: 03/16/21 11:14 Last Admin: 02/16/21 08:52 Dose: 1 puffs Documented by: Dexamethasone 6 mg/ Syringe 1.5 mls @ 1 mls/min IV Q24H [facility] Stop: 03/17/21 08:59 Last Admin: 02/16/21 08:53 Dose: 1 mls/min Documented by: Furosemide 20 mg/ Syringe 2 mls @ 4 mls/min IV QAM [facility] Stop: 03/17/21 08:59 Last Admin: 02/16/21 08:53 Dose: 4 mls/min Documented by: Ondansetron HCl (Ondansetron Inj 2 Mg/Ml 2 Ml Vial) 4 mg IV Q6H PRN PRN Reason: Nausea Stop: 03/16/21 11:50 Pantoprazole Sodium (Pantoprazole 40 Mg Tab) 40 mg PO BID@9126,4430 [facility] Stop: 03/16/21 16:29 Last Admin: 02/16/21 07:58 Dose: 40 mg Documented by: Sertraline HCl (Sertraline Hcl 100 Mg Tablet) 100 mg PO DAILY [facility] Stop: 03/17/21 08:59 Last Admin: 02/16/21 08:52 Dose: 100 mg Documented by: Sertraline HCl (Sertraline Hcl 50 Mg Tablet) 50 mg PO DAILY [facility] Stop: 03/17/21 08:59 Last Admin: 02/16/21 08:52 Dose: 50 mg Documented by: Sodium Chloride (Sodium Chloride 0.9% 10ml Flush) 30 ml IV Q24H [facility] Stop: 02/19/21 12:01 Last Admin: 02/15/21 10:12 Dose: Not Given Documented by: PG Care Time/CCT Total # of Minutes Spent Total Time Spent with Patient: Total time spent is greater than 50% in coordination of care (as documented) at patient's floor/unit and/or counseling patient: Coding Level of Care Code 41673 Subseq Hosp Care Lvl 3 Diagnoses COVID-19 U07.1 Acute hypoxemic respiratory failure J96.01 Obesity (BMI 30-39.9) E66.9 Asthma J45.909 Anxiety F41.9 ARDS (adult respiratory distress syndrome) J80
[2021-02-16] MEDS: SODIUM CHLORIDE 0.9% 10ML FLUSH IV SCH (11:28)
--- NOTE | 2021-02-16 12:00 | Pulmonology Progress Note ---
Date of Service February 16, 2021 Assessment & Plan (1) Abnormal CXR: (2) Acute hypoxemic respiratory failure: (3) Obesity (BMI 30-39.9): (4) Asthma: (5) Anemia: Plan: Impression: 25-year-old female with history of asthma, no PFTs available as well as eosinophilic esophagitis presenting with Covid pneumonitis and acute hypoxemic respiratory failure. She remains with a significant oxygen requirement but states she feels she is breathing okay currently. Recommendation: 1. Acute hypoxemic respiratory failure: Continue supplemental oxygen on high flow titrated to keep saturations at or above 90%. May consider application of noninvasive positive pressure ventilation. Continue to monitor patient closely. She is at risk of clinical deterioration requiring intubation mechanical ventilation. Continue to self proning as tolerated although it is unclear if this made a significant benefit 2. Covid pneumonitis: Dexamethasone 6 mg daily per protocol. Continue baricitinib. Try and keep I's and O's even. Monitor for signs of secondary infection. 3. DVT prophylaxis per ACCP guidelines. 4. Her procalcitonin is negative so would hold antibiotics for now. 5. Asthma: Continue Breo. Could consider transitioning to nebulized budesonide if she has difficulty with breath-hold. Albuterol nebs/MDI as needed She appears to be clinically improving at this point in time. Would continue current therapy. Please contact us if additional pulmonary input is required. Admission and Anticipated Discharge Date Admission Date: February 14, 2021 Subjective Patient seen and examined. She feels clinically better today. She is sitting upright. She has had a slight reduction in her oxygen requirement. She is not wheezing. Intermittent coughing but no significant sputum production. She does not complain of significant dyspnea and her work of breathing is acceptable Review of Systems Review of Systems: All systems reviewed & are unremarkable except as noted in HPI & below Physical Exam Neck: trachea midline, no thyromegaly Respiratory: normal respiratory effort; no respiratory distress and no labored breathing Auscultation: + rales; no wheezes Cardiovascular: RRR, no murmur, no edema Gastrointestinal (Abdomen): normal bowel sounds, soft, nontender, no hepatosplenomegaly Musculoskeletal: Extremities: extremities normal to inspection Skin: no rashes, warm and dry Lymphatic: no cervical lymphadenopathy Results & Data Results & Data ([facility]) Vital Signs (Past 12 Hours) Vital Signs Temp Pulse Pulse Resp BP BP Pulse Ox 02/16/21 09:00 114 H 22 113/73 90 02/16/21 08:00 77 02/16/21 07:54 36.7 C 111 H 22 126/86 97 02/16/21 05:37 74 32 H 96 02/16/21 03:13 65 34 H 96 02/16/21 02:49 36.9 C 91 H 16 139/92 100 Critical Care Results & Data Vital Signs (Past 12 Hours) Vital Signs Temp Pulse Pulse Resp BP BP Pulse Ox 02/16/21 09:00 114 H 22 113/73 90 02/16/21 08:00 77 02/16/21 07:54 36.7 C 111 H 22 126/86 97 02/16/21 05:37 74 32 H 96 02/16/21 03:13 65 34 H 96 02/16/21 02:49 36.9 C 91 H 16 139/92 100 Lab & Micro Results (Past 24 Hours) No Data to Display Na 138 mmol/L (136-145) 02/16/21 K 4.2 mmol/L (3.5-5.1) 02/16/21 Cl 106 mmol/L (98-107) 02/16/21 CO2 28 mmol/L (21-32) 02/16/21 Anion Gap 4.0 (3-11) 02/16/21 BUN 17 mg/dl (7-18) 02/16/21 Creatinine 0.63 mg/dl (0.6-1.2) 02/16/21 Estimated GFR ( Amer) 142.5 ml/min 02/16/21 Estimated GFR (Non-Af Amer) 122.9 ml/min 02/16/21 BUN/Creatinine Ratio 27.0 (10-20) H 02/16/21 Glu 111 mg/dl (70-99) H 02/16/21 Ca 8.7 mg/dl (8.5-10.1) 02/16/21 Calcium Level 8.7 mg/dl (8.5-10.1) 02/16/21 05:34 02/16/21 Microbiology 02/14/21 09:26 Aerobic Blood Culture - Preliminary Blood No growth in Aerobic bottle after 48 hours. Anaerobic Blood Culture - Preliminary No growth in Anaerobic bottle after 48 hours. 02/14/21 08:35 Aerobic Blood Culture - Preliminary Blood No growth in Aerobic bottle after 48 hours. Anaerobic Blood Culture - Preliminary No growth in Anaerobic bottle after 48 hours. I & O Totals 24 Hours 02/15/21 02/16/21 02/17/21 06:59 06:59 06:59 Intake Total 1150 / 1150 720 / 720 Output Total 3350 / 3350 2375 / 2375 Balance -2200 / -2200 -1655 / -1655 Cumulative 02/14/21 07:59 thru 02/16/21 04:50 Intake Total 1870 Output Total 5725 Balance -3855 RT Ventilator Mngmt (Last Documented) Ventilator Ordered Settings Respiratory Rate 22 02/16/21 09:00 Fraction of Inspired Oxygen 70 02/16/21 07:54 Ventilator - PT Measurements Respiratory Rate 22 PG Care Time/CCT Total # of Minutes Spent Total Time Spent with Patient: Total time spent is greater than 50% in coordination of care (as documented) at patient's floor/unit and/or counseling patient: Coding Level of Care Code 44485 Subseq Hosp Care Lvl 2 Diagnoses Abnormal CXR R93.89 Acute hypoxemic respiratory failure J96.01 Obesity (BMI 30-39.9) E66.9 Asthma J45.909 Anemia D64.9
[2021-02-17 07:50] LABS: C Reactive Protein 5.75 mg/dl (0-0.29); Calcium 8.5 mg/dl (8.5-10.1); Creatinine Clr Calc Pharmacy 166.2 ml/min; Est GFR (African American) 138.3 ml/min; Est GFR (Non-African American) 119.3 ml/min
[2021-02-17] MEDS: FLUTICASONE/VILANTEROL 100/25MCG 14 PUFFS/INHALER INH SCH (08:20)
[2021-02-17] MEDS: PANTOprazole 40 MG TAB PO SCH ×2 (08:20→15:32)
[2021-02-17] MEDS: ATOMOXETINE HCL 40 MG CAPSULE PO SCH ×2 (08:21→19:59)
[2021-02-17] MEDS: 4 mg Once Daily x14 days PO SCH (08:21)
[2021-02-17] MEDS: dexAMETHasone 6 MG in SYRINGE 0 ML IV SCH (08:21)
[2021-02-17] MEDS: busPIRone 15 MG TAB PO SCH (08:21)
[2021-02-17] MEDS: FUROSEMIDE 20 MG in SYRINGE 0 ML IV SCH (08:22)
[2021-02-17] MEDS: SERTRALINE HCL 50 MG TABLET PO SCH (08:22)
[2021-02-17] MEDS: ENOXAPARIN INJ 60 MG/0.6 ML SYR SQ SCH ×2 (08:22→19:59)
[2021-02-17] MEDS: SERTRALINE HCL 100 MG TABLET PO SCH (08:22)
--- NOTE | 2021-02-17 10:30 | Hospitalist Progress Note ---
Date of Service February 17, 2021 Assessment & Plan (1) COVID-19: Plan: COVID 19 pneumonia, about 8 days into her illness on presentation SEVERE disease with bilateral infiltrates, placed on high flow in the ED Dexamethasone 10mg IV in ED, will continue 6mg IV daily, day 4 Baricitinib 4mg daily x 14 days, day 4 stopped Remdesivir as unlikely to help this far into illness placed gamboa, Lasix 20mg IV qAM to keep negative fluid balance, responding well, Cr stable, BUN trending up but she is drinking a lot of fluids so keep Lasix for now keep gamboa as well as she still desaturates with movement down to 40L and 60% today, CRP down to 5 from 20, getting better flutter valve, incentive spirometer prone as often as possible, discussed the importance of this, she is very compliant, slept all night on her stomach again and spends a lot of time on her belly during the day called mom with update anticipate her being here through the week, depends on how long it takes to get off oxygen (2) Acute hypoxemic respiratory failure: Plan: due to COVID pneumonia CTA is negative for PE treatment for COVID, prone as often as possible, very compliant Lasix for negative fluid balance, gamboa placed to limit movement and desaturation events making improvements, down to 40L and 60% (3) ARDS (adult respiratory distress syndrome): Plan: due to COVID pneumonia dexamethasone, prone position, negative fluid balance with Lasix daily (4) Obesity (BMI 30-39.9): Plan: encourage weight loss after discharge (5) Asthma: Plan: no wheezing, continue Duoneb PRN Fluticasone daily (6) Anxiety: Plan: continue Zoloft, Buspirone less anxious today, she sees that treatment is working Plan: continue current regimen discussed ECMO with [facility], no need to consider unless she would need intubated call them if she gets worse but right now getting better call her mother daily with updates Admission and Anticipated Discharge Date Admission Date: February 14, 2021 Subjective patient doing great, down to 40L and 60%, big improvement eating well, sleeping well encouraged her to keep proning, it is working well Cr is stable, BUN going up with Lasix, CRP is down to 5 from 20, big improvement + cough and dyspnea but less dyspnea, no chest pain, no fever/chills discussed that she will be here through the week to recover, maybe longer, but stay strong cause she is getting better no anxiety, very calm and motivated to get better Review of Systems Review of Systems: All systems reviewed & are unremarkable except as noted in Subjective Respiratory: + cough, + dyspnea and + dyspnea on exertion Physical Exam Physical Exam: General: well developed, obese young female, no distress, ill appearing, diaphoretic Neck: supple, trachea midline, normal thyroid Lungs: diminished, no wheezing, some crackles in bases, + tachypnea, + cough, + accessory muscle use, no distress Heart: tachycardic, S1 and S2, no murmur, peripheral pulses normal, capillary refill normal, no edema Abdomen: soft, NT, ND, + BS, no hepatomegaly, normal to percussion Extremities: normal in appearance, no cyanosis, no petechiae, strength is 5/5 bilaterally Neuro: awake, cooperative, moves all extremities, no focal motor deficits, CN II-XII intact, sensation in extremities intact, normal speech Skin: warm, dry, no rash, normal turgor Psych: Awake, alert oriented x 3, euthymic affect Results & Data Results & Data ([facility]) Vital Signs (Past 12 Hours) Vital Signs Temp Pulse Pulse Resp BP BP Pulse Ox 02/17/21 08:19 36.9 C 100 H 20 120/87 93 02/17/21 06:20 98 H 18 98 02/17/21 04:21 72 18 100 02/17/21 04:00 91 H 02/17/21 02:40 36.8 C 107 H 16 139/95 92 02/16/21 23:29 138/85 02/16/21 23:26 36.9 C 87 30 H 144/99 H 96 02/16/21 23:10 96 H 18 96 Laboratory Results Laboratory Results - last 24 hr 02/17/21 06:30 Sodium 140 Potassium 4.0 Chloride 107 Carbon Dioxide 28 Anion Gap 6.0 BUN 23 H Creatinine 0.69 Est Cr Clr Drug Dosing 166.2 Est GFR ( Amer) 138.3 Est GFR (Non-Af Amer) 119.3 BUN/Creatinine Ratio 33.0 H Glucose 82 Calcium 8.5 C-Reactive Protein 5.75 H Medications Administered Current Inpatient Medications Acetaminophen (Acetaminophen 325 Mg Tab) 650 mg PO Q4H PRN PRN Reason: Pain or Fever Stop: 03/16/21 11:50 Albuterol (Albuterol Hfa 8 Gm Inhaler) 2 puffs INH Q4 PRN PRN Reason: Wheezing Stop: 03/16/21 11:59 Albuterol (Albut/Ipratrop 3mg/0.5mg Neb 3 Ml Vial) 3 ml NEB Q4R PRN PRN Reason: Shortness Of Breath Or Wheezing Stop: 03/16/21 14:59 Atomoxetine HCl (Atomoxetine Hcl 40 Mg Capsule) 40 mg PO BID [facility] Stop: 03/16/21 20:59 Last Admin: 02/17/21 08:21 Dose: 40 mg Documented by: Baricitinib (4 Mg Once Daily X14 Days) 4 mg PO DAILY [facility]; Protocol Stop: 02/28/21 08:59 Last Admin: 02/17/21 08:21 Dose: 4 mg Documented by: Buspirone HCl (Buspirone 15 Mg Tab) 15 mg PO DAILY [facility] Stop: 03/17/21 08:59 Last Admin: 02/17/21 08:21 Dose: 15 mg Documented by: Enoxaparin Sodium (Enoxaparin Inj 60 Mg/0.6 Ml Syr) 60 mg SQ Q12 ERNESTINE Stop: 03/16/21 13:59 Last Admin: 02/17/21 08:22 Dose: 60 mg Documented by: Fluticasone/Vilanterol (Fluticasone/Vilanterol 100/25mcg 14 Puffs/Inhaler) 1 puffs INH DAILY [facility] Stop: 03/16/21 11:14 Last Admin: 02/17/21 08:20 Dose: 1 puffs Documented by: Dexamethasone 6 mg/ Syringe 1.5 mls @ 1 mls/min IV Q24H ERNESTINE Stop: 03/17/21 08:59 Last Admin: 02/17/21 08:21 Dose: 1 mls/min Documented by: Furosemide 20 mg/ Syringe 2 mls @ 4 mls/min IV QAM ERNESTINE Stop: 03/17/21 08:59 Last Admin: 02/17/21 08:22 Dose: 4 mls/min Documented by: Ondansetron HCl (Ondansetron Inj 2 Mg/Ml 2 Ml Vial) 4 mg IV Q6H PRN PRN Reason: Nausea Stop: 03/16/21 11:50 Pantoprazole Sodium (Pantoprazole 40 Mg Tab) 40 mg PO BID@3547,3780 [facility] Stop: 03/16/21 16:29 Last Admin: 02/17/21 08:20 Dose: 40 mg Documented by: Sertraline HCl (Sertraline Hcl 100 Mg Tablet) 100 mg PO DAILY ERNESTINE Stop: 03/17/21 08:59 Last Admin: 02/17/21 08:22 Dose: 100 mg Documented by: Sertraline HCl (Sertraline Hcl 50 Mg Tablet) 50 mg PO DAILY ERNESTINE Stop: 03/17/21 08:59 Last Admin: 02/17/21 08:22 Dose: 50 mg Documented by: Sodium Chloride (Sodium Chloride 0.9% 10ml Flush) 30 ml IV Q24H [facility] Stop: 02/19/21 12:01 Last Admin: 02/16/21 11:28 Dose: Not Given Documented by: PG Care Time/CCT Total # of Minutes Spent Total Time Spent with Patient: Total time spent is greater than 50% in coordination of care (as documented) at patient's floor/unit and/or counseling patient: Coding Level of Care Code 84178 Subseq Hosp Care Lvl 3 Diagnoses COVID-19 U07.1 Acute hypoxemic respiratory failure J96.01 ARDS (adult respiratory distress syndrome) J80 Obesity (BMI 30-39.9) E66.9 Asthma J45.909 Anxiety F41.9
[2021-02-17] MEDS: SODIUM CHLORIDE 0.9% 10ML FLUSH IV SCH (10:48)
--- NOTE | 2021-02-18 08:15 | Hospitalist Progress Note ---
Date of Service February 18, 2021 Assessment & Plan (1) COVID-19: Plan: COVID 19 pneumonia, about 8 days into her illness on presentation SEVERE disease with bilateral infiltrates, placed on high flow in the ED Dexamethasone 10mg IV in ED, will continue 6mg IV daily, day 4 Baricitinib 4mg daily x 14 days, day 4 stopped Remdesivir as timecourse unfavorable placed gamboa, Lasix 20mg IV qAM to keep negative fluid balance, responding well, Cr stable, keep gamboa as well as she still desaturates with movement down to 30L and 50% , CRP down to 5 from 20, getting better flutter valve, incentive spirometer prone as often as possible, discussed the importance of this, she is very compliant, slept all night on her stomach again and spends a lot of time on her belly during the day anticipate her being here through the week, depends on how long it takes to get off oxygen (2) Acute hypoxemic respiratory failure: Plan: due to COVID pneumonia CTA is negative for PE treatment for COVID, prone as often as possible, very compliant Lasix for negative fluid balance, gamboa placed to limit movement and desaturation events making improvements, down to 5L NC (3) ARDS (adult respiratory distress syndrome): Plan: due to COVID pneumonia dexamethasone, prone position, negative fluid balance with Lasix daily (4) Obesity (BMI 30-39.9): Plan: encourage weight loss after discharge (5) Asthma: Plan: no wheezing, continue Duoneb PRN Fluticasone daily (6) Anxiety: Plan: continue Zoloft, Buspirone less anxious today, she sees that treatment is working Plan: continue current regimen discussed ECMO with [facility], no need to consider unless she would need intubate d call them if she gets worse but right now getting better Admission and Anticipated Discharge Date Admission Date: February 14, 2021 Subjective Pt feels much better is still on reducing doses of oxygen, no diarrhea, eating and drinking well, has taste and smell of food Review of Systems Review of Systems: Mild distress and fatigue no headache, no visual changes no speech or swallowing issues no chest pain, pressure or palpitations Continues with moderate shortness of breath, nonproductive cough no abdominal pain, nausea or vomiting, diarrhea or constipation no dysuria, hematuria or frequency no focal joint pain or swelling no back pain, CVA tenderness or radicular pain no bruising, bleeding or rashes no focal signs of weakness or numbness or altered sensation no complaints of anxiety or depression.. Physical Exam Physical Exam: The patient appeared well nourished and normally developed. Vital signs as documented. Head exam is normocephalic atraumatic Neck is without JVD, thyromegaly, or carotid bruits. Lungs are scant rales at base the clear, no focal loss of breath sounds Cardiac exam, Rhythm is regular.. No murmurs, rubs or gallops. Abdominal exam reveals normal bowel sounds, soft non tender, no masses Extremities are nonedematous and both pedal pulses are present Neurologic exam is alert and oriented, no focal loss of strength or sensation Skin is without bruises or rashes Psychologically is without concerns for anxiety or depression Results & Data Results & Data ([facility]) Vital Signs (Past 12 Hours) Vital Signs Temp Pulse Pulse Resp BP BP Pulse Ox 02/18/21 08:00 98.6 F 92 H 96 H 24 136/78 94 02/18/21 07:03 98.4 F 117 H 22 150/86 H 90 02/18/21 05:54 88 22 92 02/18/21 03:04 98.2 F 89 16 137/89 92 02/18/21 02:32 84 20 94 02/17/21 23:23 97.9 F 84 20 122/83 96 PG Care Time/CCT Total # of Minutes Spent Total Time Spent with Patient: Total time spent is greater than 50% in coordination of care (as documented) at patient's floor/unit and/or counseling patient: Coding Level of Care Code 04437 Subseq Hosp Care Lvl 2 Diagnoses COVID-19 U07.1 Acute hypoxemic respiratory failure J96.01 ARDS (adult respiratory distress syndrome) J80 Obesity (BMI 30-39.9) E66.9 Asthma J45.909 Anxiety F41.9
[2021-02-18] MEDS: busPIRone 15 MG TAB PO SCH (08:54)
[2021-02-18] MEDS: SERTRALINE HCL 50 MG TABLET PO SCH (08:54)
[2021-02-18] MEDS: dexAMETHasone 6 MG in SYRINGE 0 ML IV SCH (08:54)
[2021-02-18] MEDS: FLUTICASONE/VILANTEROL 100/25MCG 14 PUFFS/INHALER INH SCH (08:54)
[2021-02-18] MEDS: SERTRALINE HCL 100 MG TABLET PO SCH (08:54)
[2021-02-18] MEDS: ATOMOXETINE HCL 40 MG CAPSULE PO SCH ×2 (08:54→21:15)
[2021-02-18] MEDS: FUROSEMIDE 20 MG in SYRINGE 0 ML IV SCH (08:54)
[2021-02-18] MEDS: ENOXAPARIN INJ 60 MG/0.6 ML SYR SQ SCH ×2 (08:55→21:15)
[2021-02-18] MEDS: PANTOprazole 40 MG TAB PO SCH ×2 (08:55→17:59)
[2021-02-18] MEDS: 4 mg Once Daily x14 days PO SCH (10:02)
[2021-02-18] MEDS: SODIUM CHLORIDE 0.9% 10ML FLUSH IV SCH (14:10)
[2021-02-19] MEDS: dexAMETHasone 6 MG in SYRINGE 0 ML IV SCH (08:32)
[2021-02-19] MEDS: busPIRone 15 MG TAB PO SCH (08:32)
[2021-02-19] MEDS: FLUTICASONE/VILANTEROL 100/25MCG 14 PUFFS/INHALER INH SCH (08:32)
[2021-02-19] MEDS: FUROSEMIDE 20 MG in SYRINGE 0 ML IV SCH (08:32)
[2021-02-19] MEDS: ENOXAPARIN INJ 60 MG/0.6 ML SYR SQ SCH ×2 (08:32→21:19)
[2021-02-19] MEDS: SERTRALINE HCL 50 MG TABLET PO SCH (08:33)
[2021-02-19] MEDS: SERTRALINE HCL 100 MG TABLET PO SCH (08:33)
[2021-02-19] MEDS: 4 mg Once Daily x14 days PO SCH (08:33)
[2021-02-19] MEDS: PANTOprazole 40 MG TAB PO SCH ×2 (08:33→16:37)
[2021-02-19] MEDS: ATOMOXETINE HCL 40 MG CAPSULE PO SCH ×2 (08:33→21:19)
--- NOTE | 2021-02-19 18:44 | Hospitalist Progress Note ---
Date of Service February 19, 2021 Assessment & Plan (1) COVID-19: Plan: COVID 19 pneumonia, about 8 days into her illness on presentation SEVERE disease with bilateral infiltrates, placed on high flow in the ED Dexamethasone 10mg IV in ED, will continue 6mg IV daily, Baricitinib 4mg daily stopped Remdesivir as timecourse unfavorable placed gamboa, Lasix 20mg IV qAM to keep negative fluid balance, Cr remains stable, removed gamboa cath today down to 3 l nc flutter valve, incentive spirometer prone as often as possible, discussed the importance of this, she is very compliant, slept all night on her stomach again and spends a lot of time on her belly during the day (2) Acute hypoxemic respiratory failure: Plan: due to COVID pneumonia CTA is negative for PE treatment for COVID, prone as often as possible, very compliant Lasix for negative fluid balance, gamboa placed to limit movement and desaturation events making improvements, down to 3L NC (3) ARDS (adult respiratory distress syndrome): Plan: due to COVID pneumonia baricitinib, dexamethasone, prone position, negative fluid balance with Lasix daily (4) Obesity (BMI 30-39.9): Plan: encourage weight loss after discharge (5) Asthma: Plan: no wheezing, continue Duoneb PRN Fluticasone daily (6) Anxiety: Plan: continue Zoloft, Buspirone less anxious today, she sees that treatment is working Plan: continue current regimen discussed ECMO with [facility], no need to consider unless she would need intubated improving so no longer an issue Admission and Anticipated Discharge Date Admission Date: February 14, 2021 Subjective Pt feels much better is still on reducing doses of oxygen, no diarrhea, eating and drinking well, has taste and smell of food Review of Systems Review of Systems: Mild distress and fatigue no headache, no visual changes no speech or swallowing issues no chest pain, pressure or palpitations Continues with moderate shortness of breath, nonproductive cough no abdominal pain, nausea or vomiting, diarrhea or constipation no dysuria, hematuria or frequency no focal joint pain or swelling no back pain, CVA tenderness or radicular pain no bruising, bleeding or rashes no focal signs of weakness or numbness or altered sensation no complaints of anxiety or depression.. Physical Exam Physical Exam: The patient appeared well nourished and normally developed. Vital signs as documented. Head exam is normocephalic atraumatic Neck is without JVD, thyromegaly, or carotid bruits. Lungs are scant rales at base the clear, no focal loss of breath sounds Cardiac exam, Rhythm is regular.. No murmurs, rubs or gallops. Abdominal exam reveals normal bowel sounds, soft non tender, no masses Extremities are nonedematous and both pedal pulses are present Neurologic exam is alert and oriented, no focal loss of strength or sensation Skin is without bruises or rashes Psychologically is without concerns for anxiety or depression Results & Data Results & Data ([facility]) Vital Signs (Past 12 Hours) Vital Signs Temp Pulse Pulse Resp BP BP Pulse Ox 02/19/21 16:00 94 02/19/21 15:48 98.1 F 109 H 18 115/76 94 02/19/21 12:23 91 02/19/21 12:00 90 02/19/21 11:06 98.1 F 113 H 20 107/70 91 02/19/21 08:02 90 97 02/19/21 07:19 97.9 F 92 H 22 116/77 97 Pulse Ox 02/19/21 16:00 02/19/21 15:48 02/19/21 12:23 02/19/21 12:00 02/19/21 11:06 02/19/21 08:02 98 02/19/21 07:19 PG Care Time/CCT Total # of Minutes Spent Total Time Spent with Patient: Total time spent is greater than 50% in coordination of care (as documented) at patient's floor/unit and/or counseling patient: Coding Level of Care Code 10973 Subseq Hosp Care Lvl 2 Diagnoses COVID-19 U07.1 Acute hypoxemic respiratory failure J96.01 ARDS (adult respiratory distress syndrome) J80 Obesity (BMI 30-39.9) E66.9 Asthma J45.909 Anxiety F41.9
--- NOTE | 2021-02-20 07:10 | Hospitalist Progress Note ---
Date of Service February 20, 2021 Assessment & Plan (1) COVID-19: Plan: COVID 19 pneumonia, about 8 days into her illness on presentation SEVERE disease with bilateral infiltrates, placed on high flow in the ED Dexamethasone 10mg IV in ED, will continue 6mg IV daily, Baricitinib 4mg daily stopped Remdesivir as timecourse unfavorable placed gamboa, Lasix 20mg IV qAM to keep negative fluid balance, Cr remains stable, removed gamboa cath today Mansi has been fine with room air at rest but significantly desaturates with tachycardia with ambulation. I gave the option of going home versus waiting another day she says she is fine waiting another day as I was hopeful not to discharge her on home on oxygen. I did call her mother to have an update and her mother became significantly angry at me stating that I told her she was going to go home that the patient can not stay in the hospital another day due to her anxiety and that I told them she would probably go home by the morning of 02/21. I informed the mother that I did not want a make a promise about patient going home tomorrow until actually see and evaluate the patient before she goes home. I told her that I was just trying to do what was in Mansi's best interest by potentially having her not go home on oxygen however I will do my best to have her go home tomorrow. I do not recall telling the mother that she did go home in the morning however the mother and father's say that I did say that. I will do my very best to accomplish this goal flutter valve, incentive spirometer prone as often as possible, discussed the importance of this, she is very compliant, slept all night on her stomach again and spends a lot of time on her belly during the day (2) Acute hypoxemic respiratory failure: Plan: due to COVID pneumonia CTA is negative for PE treatment for COVID, prone as often as possible, very compliant Lasix for negative fluid balance, gamboa placed to limit movement and desaturation events making improvements, down room air 2 L with exertion (3) ARDS (adult respiratory distress syndrome): Plan: due to COVID pneumonia baricitinib, dexamethasone, prone position, negative fluid balance with Lasix daily (4) Obesity (BMI 30-39.9): Plan: encourage weight loss after discharge (5) Asthma: Plan: no wheezing, continue Duoneb PRN Fluticasone daily (6) Anxiety: Plan: continue Zoloft, Buspirone less anxious today, she sees that treatment is working Plan: continue current regimen discussed ECMO with Lorenza, no need to consider unless she would need intubated improving so no longer an issue Admission and Anticipated Discharge Date Admission Date: February 14, 2021 Subjective Pt feels much better is still on reducing doses of oxygen, no diarrhea, eating and drinking well, has taste and smell of food Unfortunately during her ambulatory oxygen test developed tachycardia 147 and hypoxia to 84. I did speak with the patient about possibly going home and oxygen versus waiting 1 more day she said she was fine waiting 1 more day with hopes that she would not need ambulatory oxygen. Review of Systems Review of Systems: Mild distress and fatigue no headache, no visual changes no speech or swallowing issues no chest pain, pressure or palpitations Continues with moderate shortness of breath, nonproductive cough no abdominal pain, nausea or vomiting, diarrhea or constipation no dysuria, hematuria or frequency no focal joint pain or swelling no back pain, CVA tenderness or radicular pain no bruising, bleeding or rashes no focal signs of weakness or numbness or altered sensation no complaints of anxiety or depression.. Physical Exam Physical Exam: The patient appeared well nourished and normally developed. Vital signs as documented. Head exam is normocephalic atraumatic Neck is without JVD, thyromegaly, or carotid bruits. Lungs are scant rales at base the clear, no focal loss of breath sounds Cardiac exam, Rhythm is regular.. No murmurs, rubs or gallops. Abdominal exam reveals normal bowel sounds, soft non tender, no masses Extremities are nonedematous and both pedal pulses are present Neurologic exam is alert and oriented, no focal loss of strength or sensation Skin is without bruises or rashes Psychologically is without concerns for anxiety or depression Results & Data Results & Data ([facility]) Vital Signs (Past 12 Hours) Vital Signs Temp Pulse Resp BP Pulse Ox 02/20/21 03:10 97.9 F 102 H 18 121/79 93 02/19/21 23:49 97.9 F 89 18 140/88 93 PG Care Time/CCT Total # of Minutes Spent Total Time Spent with Patient: Total time spent is greater than 50% in coordination of care (as documented) at patient's floor/unit and/or counseling patient: Coding Level of Care Code 24206 Subseq Hosp Care Lvl 2 Diagnoses COVID-19 U07.1 Acute hypoxemic respiratory failure J96.01 ARDS (adult respiratory distress syndrome) J80 Obesity (BMI 30-39.9) E66.9 Asthma J45.909 Anxiety F41.9
[2021-02-20] MEDS: ATOMOXETINE HCL 40 MG CAPSULE PO SCH ×2 (07:51→20:17)
[2021-02-20] MEDS: PANTOprazole 40 MG TAB PO SCH ×2 (07:52→17:21)
[2021-02-20] MEDS: busPIRone 15 MG TAB PO SCH (07:52)
[2021-02-20] MEDS: ENOXAPARIN INJ 60 MG/0.6 ML SYR SQ SCH ×2 (07:52→20:17)
[2021-02-20] MEDS: SERTRALINE HCL 50 MG TABLET PO SCH (07:53)
[2021-02-20] MEDS: FLUTICASONE/VILANTEROL 100/25MCG 14 PUFFS/INHALER INH SCH (07:53)
[2021-02-20] MEDS: SERTRALINE HCL 100 MG TABLET PO SCH (07:53)
[2021-02-20] MEDS: 4 mg Once Daily x14 days PO SCH (07:56)
[2021-02-20] MEDS: FUROSEMIDE 20 MG in SYRINGE 0 ML IV SCH (07:57)
[2021-02-20] MEDS: dexAMETHasone 6 MG in SYRINGE 0 ML IV SCH (08:02)
[2021-02-21] MEDS: busPIRone 15 MG TAB PO SCH (07:54)
[2021-02-21] MEDS: PANTOprazole 40 MG TAB PO SCH (07:54)
[2021-02-21] MEDS: ENOXAPARIN INJ 60 MG/0.6 ML SYR SQ SCH (07:54)
[2021-02-21] MEDS: 4 mg Once Daily x14 days PO SCH (07:54)
[2021-02-21] MEDS: ATOMOXETINE HCL 40 MG CAPSULE PO SCH (07:54)
[2021-02-21] MEDS: FUROSEMIDE 20 MG in SYRINGE 0 ML IV SCH (07:55)
[2021-02-21] MEDS: FLUTICASONE/VILANTEROL 100/25MCG 14 PUFFS/INHALER INH SCH (07:55)
[2021-02-21] MEDS: dexAMETHasone 6 MG in SYRINGE 0 ML IV SCH (07:55)
[2021-02-21] MEDS: SERTRALINE HCL 100 MG TABLET PO SCH (07:56)
[2021-02-21] MEDS: SERTRALINE HCL 50 MG TABLET PO SCH (07:56)
--- NOTE | 2021-02-21 19:30 | Discharge Summary ---
Date of Service February 21, 2021 Admission HPI Per Admitting Provider 25 yo female with history of asthma, eosinophilic esophagitis, obesity, obstructive sleep apnea who presents today with shortness of breath and severe hypoxia at home. She says she felt sick about 7-8 days ago, generalized weakness, low grade fevers but no cough, no dyspnea, she never lost her sense of taste or smell. She has been eating and drinking fairly well, no diarrhea or vomiting. She says she was doing okay up until yesterday when she developed difficulty breathing. She just felt like she could not take a deep breath, no wheezing, no cough, no fever/chills. Early this morning her mother called EMS because breathing was worse. EMS found her to be cyanotic, saturations were 60% on room air. Placed on 15L oxy mask and transferred to hospital. Chest x-ray shows diffuse bilateral infiltrates and she was positive for COVID 19. 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 Her father is hospitalized with COVID but he has been here for 2 weeks, unsure if she was exposed to him when he was at home. In the ED she was on 15L mask with saturations dipping below 90%, desaturates with minimal movement. Placed on Vapotherm, 35L and 100%, saturations 94%. She was talking in complete sentences but tachypneic and belly breathing slightly at rest. No wheezing. Discussed plan with Dr. Chen at the bedside, appreciate his input. Principal Diagnosis Acute respiratory failure with hypoxia Viral pneumonia Covid infection Discharge Exam The patient appeared well Vital signs as documented. Lungs are clear to auscultation and appear unlabored she is confirmed to desat with ambulation and become tachycardic she wishes to go home spite these facts Cardiac exam, Rhythm is regular, tachycardic with ambulation.. No murmurs, rubs or gallops. Abdominal exam reveals normal bowel sounds, soft non tender, no masses Extremities are nonedematous and both pedal pulses are normal. Neurologic exam is alert and oriented, no focal loss of strength or sensation Skin is without bruises or rashes Psychologically is without concerns for anxiety or depression. Discharge Data Allergies Allergy/AdvReac Type Severity Reaction Status Date / Time bee venom protein (honey bee) Allergy Unknown LOCAL Verified 02/14/21 09:41 SWELLING AT INJECTION SITE honey Allergy Unknown FACIAL Verified 02/14/21 09:41 SWELLING Penicillins Allergy Unknown RASH Verified 02/14/21 09:41 Consultations 02/14/21 09:58 ED Decision to Admit Stat 02/14/21 11:51 Consult Pulmonology Routine Ordered Studies 02/14/21 09:00 CT angio chest PE protocol Stat Hospital Course (1) COVID-19: COVID 19 pneumonia, about 8 days into her illness on presentation SEVERE disease with bilateral infiltrates, placed on high flow in the ED Dexamethasone 10mg IV in ED, will continue 6mg IV daily, Baricitinib 4mg daily completed 7 days stopped Remdesivir as timecourse unfavorable Mansi has been fine with room air at rest but significantly desaturates with tachycardia with ambulation. I gave the option of going home versus waiting another day she says she is fine going home on on oxygen. flutter valve, incentive spirometer prone as often as possible, at home discussed the importance of this Discharged home on Xarelto 10 mg a day to prevent VTE put in the postinflammatory medical discharge phase (2) Acute hypoxemic respiratory failure: due to COVID pneumonia CTA is negative for PE Room air with rest 2 L with exertion (3) ARDS (adult respiratory distress syndrome): due to COVID pneumonia Was treated with baricitinib, dexamethasone, prone position, negative fluid balance with Lasix daily (4) Obesity (BMI 30-39.9): encourage weight loss after discharge (5) Asthma: no wheezing, continue Duoneb PRN Fluticasone daily (6) Anxiety: continue Zoloft, Buspirone Total Time Total Time Spent Total Time Spent (In Minutes): It required less than 30 minutes to prepare this patient for discharge Discharge Plan Discharge Items Patient Disposition: Home - Self-Care Reason For Visit: COVID PNEUMONIA Discharge Diagnosis: acute hypoxic respiratory failure covid pneumonia Condition on Discharge: Good Activity: Per Instructions section Activity Comment: slowly increase activity Non-emergency contact: Primary Care Provider Call non-emergency contact if: you have any medication questions, your symptoms worsen and you have a fever Follow-up/Referrals: Roxie Edouard, P.A. [Primary Care Provider] - 03/06/21 11:30 am (APPOINTMENT IS WITH ALEJANDRO JAIMES 03/06/21) Diet: Regular Addtl Attending Provider Instructions: You are recovering from a pneumonia caused by Covid virus, you may feel weakened and short of breath for another month. You will also likely have chest Xray changes during that time. Please treat youself well with rest and good nutrition/hydration. you will be placed on a blood thinner to prevent blood clots associted with Covid for the month after discharge Stay off of work for then next week, having a virtual primary care visit to see if you are able to return to work. You should consider if you need to be around someone who has not had Covid to wear a mask To find out more about COVID-19, visit the CDC website at www.cdc.gov/coronavirus/2019-ncov/index.html. Pending Studies at Discharge: No Stand-Alone Forms: [facility], Work/School Release, Smoking Cessation Medications and DC Order Prescriptions: New Xarelto 10 mg tablet 10 mg PO DAILY Qty: 30 RF: 0 Continued sertraline 100 mg tablet 100 mg PO DAILY RF: 0 albuterol sulfate [Ventolin HFA] 90 mcg/actuation HFA aerosol inhaler 1 puff INHALATION Q4H PRN (Reason: Shortness Of Breath) RF: 0 sertraline 50 mg tablet 50 mg PO DAILY RF: 0 buspirone 15 mg tablet 15 mg PO DAILY RF: 0 atomoxetine 40 mg capsule 40 mg PO BID RF: 0 Breo Ellipta 100-25 mcg/dose blister with device 1 inh INHALATION DAILY RF: 0 pantoprazole 40 mg tablet,delayed release (DR/EC) 40 mg PO BID RF: 0 Discharge Orders: Discharge Order (Routine); Ordered 02/21/21 Ordered By: Terrence Pickett Admission Data Admit Date/Time: 02/14/21 10:18 Attending Provider: Terrence Pickett Admit Provider: Dom Ocampo Primary Care Provider: Roxie Edouard Other Providers: Dom Ocampo ; Moi Chen Other Interventions: Discharge Summary Assessment (RN) Last Done: 02/21/21 10:08 Coding Level of Care Code D/C DAY MANAGEMENT <30 MINS Diagnoses COVID-19 U07.1 Acute hypoxemic respiratory failure J96.01 ARDS (adult respiratory distress syndrome) J80 Obesity (BMI 30-39.9) E66.9 Asthma J45.909 Anxiety F41.9
== END 2021-02-21 13:49 | disposition home or self-care (01) | DRG 177 ==
LOC: ED 08:07 → SUATTDRO 10:18 → 2S 10:18